=== PATIENT | female | born 1985 | race American Indian/Alaskan Native ===

== ENCOUNTER 2016-07-17 23:07 | Emergency (ER) | payer MEDICAID, OTHER ==
[2016-07-18 00:48] LABS: Basophils % (Auto) 1.3 % (0.0-1.8); Eosinophils % (Auto) 7.1 % (0.0-4.3); Hematocrit 31.3 % (30.3-42.9); Hemoglobin 9.9 gm/dl (10.1-14.3); Mean Corpuscular HGB Conc 32 % (30-34); Mean Corpuscular Volume 71 fl (79-97); Platelet Count 178 K/mm3 (140-440); Red Blood Count 4.41 M/mm3 (3.65-5.03); Red Cell Distribution Width 17.8 % (13.2-15.2); White Blood Count 5.8 K/mm3 (4.5-11.0)
[2016-07-18 00:57] LABS: Mean Corpuscular Hemoglobin 22 pg (28-32)
[2016-07-18 01:02] LABS: Bacteria,Urine 1+ /HPF (Negative); Bilirubin,Urine NEG (Negative); Blood,Urine SM (Negative); Ketones,Urine NEG (Negative); Leukocyte Esterase,Urine LG (Negative); Mucus,Urine FEW /HPF; Nitrite,Urine NEG (Negative); Protein,Urine <15 mg/dL mg/dL (Negative); Urobilinogen,Urine < 2.0 mg/dL (<2.0)
[2016-07-18 01:11] LABS: Alanine Aminotransferase 12 units/L (7-56); Albumin 4.2 g/dL (3.9-5); Albumin/Globulin Ratio 1.6 %; Alkaline Phosphatase 69 units/L (35-129); BUN/Creatinine Ratio 13.75; Bilirubin,Total 0.3 mg/dL (0.1-1.2); Blood Urea Nitrogen 11 mg/dL (7-17); Calcium 9.4 mg/dL (8.4-10.2); Carbon Dioxide 28 mmol/L (22-30); Chloride 102.7 mmol/L (98-107); Glucose 113 mg/dL (65-100); Potassium 3.6 mmol/L (3.6-5.0); Sodium 143 mmol/L (137-145); Total Protein 6.9 g/dL (6.3-8.2)
[2016-07-18 01:13] LABS: Anion Gap 16 mmol/L
[2016-07-18] MEDS ORDERED: ROCEPHIN/NS 1 GM/50 ML 50 ML IV ONE (13:03)
[2016-07-18] MEDS ORDERED: TORADOL IV ONE (13:13)
--- NOTE | 2016-07-18 13:20 | Emergency Department Report ---
HPI - General Chief Complaint: Abdominal Pain Time Seen by Provider: 07/18/16 12:56 - HPI HPI: Room 23 The patient is a 31-year-old female presenting with a chief complaint of abdominal pain. The patient states for the past 2-3 days she has had suprapubic and right lower quadrant abdominal pain that has been sharp and intermittent in nature. Patient denies nausea or vomiting. Patient denies dysuria, hematuria or fever. The patient gives her pain score of 7/10 Location: [see above] Duration: [see above] Quality: [see above] Severity: [see above] Modifying factors: Unknown Context: [see above] Mode of transportation: The patient drove himself to the emergency department and there are no other licensed drivers present ED Past Medical Hx - Past Medical History Hx Hypertension: Yes (04/2013) Hx Seizures: Yes - Surgical History Additional Surgical History: both ankle surgery - Family History Family history: no significant - Social History Smoking Status: Current Every Day Smoker (1/3 pack per day) Substance Use Type: None (denies illicit drug use), Alcohol (occasional) - Medications Home Medications: Home Medications Medication Instructions Recorded Confirmed Last Taken Type Hydralazine HCl [Apresoline TAB] 50 mg PO Q8HR #90 tab 01/25/16 02/11/16 Rx Labetalol HCl 200 mg PO BID #60 tablet 01/25/16 02/11/16 02/10/16 Rx HYDROcodone/APAP 5-325 [[place] 1 each PO Q6HR PRN #14 tablet 02/11/16 Unknown Rx 5/325] Ibuprofen [Motrin] 800 mg PO Q8HR PRN #30 tablet 02/11/16 Unknown Rx Amoxicillin [Trimox CAP] 500 mg PO Q8H #30 capsule 03/28/16 Unknown Rx Cetirizine HCl [ZyrTEC] 10 mg PO DAILY #20 capsule 03/28/16 Unknown Rx HYDROcodone/APAP 5-325 [[place] 1 - 2 each PO Q6HR PRN #14 tablet 07/18/16 Unknown Rx 5/325] Promethazine [Phenergan TAB] 25 mg PO Q6HR PRN #20 tab 07/18/16 Unknown Rx Promethazine [Phenergan] 25 mg [place] Q6HR PRN #5 supp.rect 07/18/16 Unknown Rx Sulfamethoxazole/Trimethoprim 1 each PO BID #20 tablet 07/18/16 Unknown Rx [Bactrim DS TAB] ED Review of Systems ROS: Stated complaint: ABD PAIN/GUERRERO Other details as noted in HPI Comment: All other systems reviewed and negative Constitutional: denies: chills, fever Eyes: denies: eye pain, eye discharge, vision change ENT: denies: ear pain, throat pain Respiratory: denies: cough, shortness of breath, wheezing Cardiovascular: denies: chest pain, palpitations Endocrine: no symptoms reported Gastrointestinal: abdominal pain. denies: nausea, vomiting, diarrhea Genitourinary: denies: urgency, dysuria, discharge Musculoskeletal: denies: back pain, joint swelling, arthralgia Skin: denies: rash, lesions Neurological: denies: headache, weakness, paresthesias Psychiatric: denies: anxiety, depression Hematological/Lymphatic: denies: easy bleeding, easy bruising Physical Exam - Physical Exam Vital Signs: Vital Signs 07/18/16 07/18/16 00:13 05:19 Temperature 98.5 F Pulse Rate 93 H 64 Respiratory 20 20 Rate Blood Pressure 135/78 Blood Pressure 132/74 [Right] O2 Sat by Pulse 100 100 Oximetry Physical Exam: GENERAL: The patient is well-developed well-nourished female lying on stretcher not appearing to be in acute distress. [] HEENT: Normocephalic. Atraumatic. Extraocular motions are intact. Patient has moist mucous membranes. NECK: Supple. Trachea midline CHEST/LUNGS: Clear to auscultation. There is no respiratory distress noted. HEART/CARDIOVASCULAR: Regular. There is no tachycardia. There is no gallop rub or murmur. ABDOMEN: Abdomen is soft, with tenderness to palpation in the right lower quadrant and suprapubic region. Patient has normal bowel sounds. There is no abdominal distention. SKIN: There is no rash. There is no edema. There is no diaphoresis. NEURO: The patient is awake, alert, and oriented. The patient is cooperative. The patient has normal speech MUSCULOSKELETAL: There is no evidence of acute injury. There is no CVA tenderness ED Course Vital Signs 07/18/16 07/18/16 00:13 05:19 Temperature 98.5 F Pulse Rate 93 H 64 Respiratory 20 20 Rate Blood Pressure 135/78 Blood Pressure 132/74 [Right] O2 Sat by Pulse 100 100 Oximetry ED Medical Decision Making - Lab Data Result diagrams: 07/18/16 00:23 07/18/16 00:23 Laboratory Tests 07/18/16 07/18/16 07/18/16 00:23 00:23 00:25 WBC 5.8 RBC 4.41 Hgb 9.9 L Hct 31.3 MCV 71 L MCH 22 L MCHC 32 RDW 17.8 H Plt Count 178 Lymph % (Auto) 31.1 [place] % (Auto) 8.3 H Eos % (Auto) 7.1 H Baso % (Auto) 1.3 Lymph # 1.8 [place] # 0.5 Eos # 0.4 Baso # 0.1 Seg Neutrophils % 52.2 Seg Neutrophils # 3.0 Sodium 143 Potassium 3.6 Chloride 102.7 Carbon Dioxide 28 Anion Gap 16 BUN 11 Creatinine 0.8 Estimated GFR > 60 BUN/Creatinine Ratio 13.75 Glucose 113 H Calcium 9.4 Total Bilirubin 0.3 AST 22 ALT 12 Alkaline Phosphatase 69 Total Protein 6.9 Albumin 4.2 Albumin/Globulin Ratio 1.6 Urine Color Yellow Urine Turbidity Slightly-cloudy Urine pH 6.0 Ur Specific [place] 1.016 Urine Protein <15 mg/dl Urine Glucose (UA) Neg Urine Ketones Neg Urine Blood Sm Urine Nitrite Neg Urine Bilirubin Neg Urine Urobilinogen < 2.0 Ur Leukocyte Esterase Lg Urine WBC (Auto) 129.0 H Urine RBC (Auto) 9.0 U Epithel Cells (Auto) 6.0 Urine Bacteria (Auto) 1+ Ur Transition Epith Cell 2 Urine Mucus Few Urine HCG, Qual Negative - Radiology Data Radiology results: report reviewed (CT abdomen and pelvis), image reviewed (CT abdomen and pelvis) CT abdomen and pelvis (read by radiologist)-thick walled urinary bladder may be due to adequate distention or cystitis. Suspicion of 2 cm cyst left ovary. - Differential Diagnosis UTI, pyelonephritis, appendicitis Critical care attestation.: If time is entered above; I have spent that time in minutes in the direct care of this critically ill patient, excluding procedure time. ED Disposition Clinical Impression: UTI (urinary tract infection), Acute abdominal pain Disposition: DISCHARGED TO HOME OR SELFCARE Is pt being admited?: No Does the pt Need Aspirin: No Condition: Stable Instructions: Abdominal Pain (ED), Urinary Tract Infection in Women (ED) Additional Instructions: Return to the emergency department immediately should you develop worsening symptoms, fever, inability to tolerate food or liquid or any other concerns. Prescriptions: HYDROcodone/APAP 5-325 [[place] 5/325] 1 - 2 each PO Q6HR PRN #14 tablet PRN Reason: Pain Promethazine [Phenergan TAB] 25 mg PO Q6HR PRN #20 tab PRN Reason: Nausea Promethazine [Phenergan] 25 mg [place] Q6HR PRN #5 supp.rect PRN Reason: Vomiting Sulfamethoxazole/Trimethoprim [Bactrim DS TAB] 1 each PO BID #20 tablet Referrals: PRIMARY CARE, [Primary Care Provider] - 3-5 Days Time of Disposition: 15:18
[2016-07-18] MEDS ORDERED: NACL ONE (13:49)
--- NOTE | 2016-07-18 14:58 | Cat Scan Report ---
CT scan of abdomen and pelvis with IV contrast: History: Right lower quadrant abdominal pain. Findings: Normal lung bases. No pleural or pericardial effusion. Normal liver spleen pancreas and gallbladder. Normal adrenals and kidney parenchyma. Thick walled urinary bladder probably due to inadequate distention or cystitis. No free intraperitoneal fluid or. No evidence of adenopathy. Normal aorta. Fluid in the dilated endometrium. Normal appendix. Gaseous colon with moderate stool in colon. No evidence of diverticulitis. Suspicion of a small left ovarian cyst. Impression: Thickwalled urinary bladder may be due to adequate distention or cystitis. Suspicion of 2 cm cyst left ovary.
[2016-07-18 16:09] VITALS: BP 146/82
== END 2016-07-18 15:18 | disposition home or self-care (01) ==
LOC: ED 23:07
DX: N39.0 Urinary tract infection, site not specified (principal); R10.31 Right lower quadrant pain; R56.9 Unspecified convulsions; I10 Essential (primary) hypertension; F17.200 Nicotine dependence, unspecified, uncomplicated
CPT/HCPCS: 36415; 74177; 80053; 81001; 81025; 85025; 87076; 87086; 87186; 96365; 96366; 96375; 99284; J0696; J1885; Q9967

== ENCOUNTER 2016-11-14 23:09 | Emergency (ER) | payer SELFPAY ==
[2016-11-15] MEDS ORDERED: MOTRIN PO ONE (02:23)
--- NOTE | 2016-11-15 02:29 | Emergency Department Report ---
- General Chief Complaint: Extremity Injury, Upper Stated Complaint: BODY ACHES, CHILLS, CONGESTION Time Seen by Provider: 11/15/16 02:22 Source: patient Mode of arrival: Ambulatory Limitations: No Limitations - History of Present Illness Initial Comments: 31 with a past medical history of hypertension. And a history of seizures. 1- year-old -Citizen Of [place] female comes in today for complaint of body aches or Raynaud's nasal congestion coughing and sore throat 2 days. Patient denies any fever or chills no nausea no vomiting. MD Complaint: cough (dry), sore throat, rhinorrhea, nasal congestion -: days(s) (2) Severity scale (0 -10): 8 Quality: aching Consistency: constant Improves With: nothing Worsens With: nothing Associated Symptoms: cough - Related Data Previous Rx's Medication Instructions Recorded Last Taken Type Hydralazine HCl [Apresoline TAB] 50 mg PO Q8HR #90 tab 01/25/16 02/10/16 Rx Labetalol HCl 200 mg PO BID #60 tablet 01/25/16 02/10/16 Rx HYDROcodone/APAP 5-325 [[place] 1 each PO Q6HR PRN #14 tablet 02/11/16 Unknown Rx 5/325] Amoxicillin [Trimox CAP] 500 mg PO Q8H #30 capsule 03/28/16 Unknown Rx Cetirizine HCl [ZyrTEC] 10 mg PO DAILY #20 capsule 03/28/16 Unknown Rx HYDROcodone/APAP 5-325 [[place] 1 - 2 each PO Q6HR PRN #14 tablet 07/18/16 Unknown Rx 5/325] Promethazine [Phenergan TAB] 25 mg PO Q6HR PRN #20 tab 07/18/16 Unknown Rx Promethazine [Phenergan] 25 mg [place] Q6HR PRN #5 supp.rect 07/18/16 Unknown Rx Sulfamethoxazole/Trimethoprim 1 each PO BID #20 tablet 07/18/16 Unknown Rx [Bactrim DS TAB] Ibuprofen [Motrin 800 MG tab] 800 mg PO Q8HR PRN #30 tablet 11/15/16 Unknown Rx Levocetirizine Dihydrochloride 5 mg PO QDAY #30 tablet 11/15/16 Unknown Rx [Xyzal] Triamcinolone Acetonide [Nasacort 2 sprays NS QDAY #1 bottle 11/15/16 Unknown Rx SPRAY] Allergies Allergy/AdvReac Type Severity Reaction Status Date / Time carbamazepine [From Tegretol] Allergy Unknown Unknown Verified 02/10/16 23:05 phenobarbital Allergy Unknown Unknown Verified 02/10/16 23:05 ED Review of Systems ROS: Stated complaint: BODY ACHES, CHILLS, CONGESTION Other details as noted in HPI Constitutional: denies: chills, fever ENT: throat pain Respiratory: cough Cardiovascular: denies: chest pain, palpitations Endocrine: no symptoms reported Gastrointestinal: denies: abdominal pain, nausea, diarrhea Genitourinary: denies: urgency, dysuria, discharge Musculoskeletal: arthralgia. denies: back pain, joint swelling Skin: as per HPI Neurological: denies: headache, weakness, paresthesias Psychiatric: denies: anxiety, depression ED Past Medical Hx - Past Medical History Previous Medical History?: Yes Hx Hypertension: Yes (04/2013) Hx Seizures: Yes - Surgical History Past Surgical History?: Yes Additional Surgical History: both ankle surgery - Social History Smoking Status: Current Every Day Smoker Substance Use Type: Alcohol - Medications Home Medications: Home Medications Medication Instructions Recorded Confirmed Last Taken Type Hydralazine HCl [Apresoline TAB] 50 mg PO Q8HR #90 tab 01/25/16 02/11/16 Rx Labetalol HCl 200 mg PO BID #60 tablet 01/25/16 02/11/16 02/10/16 Rx HYDROcodone/APAP 5-325 [[place] 1 each PO Q6HR PRN #14 tablet 02/11/16 Unknown Rx 5/325] Amoxicillin [Trimox CAP] 500 mg PO Q8H #30 capsule 03/28/16 Unknown Rx Cetirizine HCl [ZyrTEC] 10 mg PO DAILY #20 capsule 03/28/16 Unknown Rx HYDROcodone/APAP 5-325 [[place] 1 - 2 each PO Q6HR PRN #14 tablet 07/18/16 Unknown Rx 5/325] Promethazine [Phenergan TAB] 25 mg PO Q6HR PRN #20 tab 07/18/16 Unknown Rx Promethazine [Phenergan] 25 mg [place] Q6HR PRN #5 supp.rect 07/18/16 Unknown Rx Sulfamethoxazole/Trimethoprim 1 each PO BID #20 tablet 07/18/16 Unknown Rx [Bactrim DS TAB] Ibuprofen [Motrin 800 MG tab] 800 mg PO Q8HR PRN #30 tablet 11/15/16 Unknown Rx Levocetirizine Dihydrochloride 5 mg PO QDAY #30 tablet 11/15/16 Unknown Rx [Xyzal] Triamcinolone Acetonide [Nasacort 2 sprays NS QDAY #1 bottle 11/15/16 Unknown Rx SPRAY] ED Physical Exam - General Limitations: No Limitations General appearance: alert, in no apparent distress - Head Head exam: Present: atraumatic, normocephalic - Eye Eye exam: Present: normal appearance - ENT ENT exam: Present: mucous membranes moist - Expanded ENT Exam Expanded Throat exam: Positive: tonsillomegaly. Negative: tonsillar erythema, tonsillar exudate - Neck Neck exam: Present: normal inspection - Respiratory Respiratory exam: Present: normal lung sounds bilaterally - Cardiovascular Cardiovascular Exam: Present: regular rate, normal rhythm. Absent: systolic murmur, diastolic murmur, rubs, gallop - GI/Abdominal GI/Abdominal exam: Present: soft, normal bowel sounds - Extremities Exam Extremities exam: Present: normal inspection ED Course Vital Signs 11/14/16 11/15/16 23:13 02:34 Temperature 98.3 F Pulse Rate 103 H Respiratory 18 18 Rate Blood Pressure 144/98 O2 Sat by Pulse 100 Oximetry ED Medical Decision Making - Medical Decision Making Patient has been evaluated by this provider fast track. Patient was given Motrin 600 mg by mouth now. We will send out a influenza tests. We would discharge patient on Motrin, Zyrtec,and Nasacort. Critical care attestation.: If time is entered above; I have spent that time in minutes in the direct care of this critically ill patient, excluding procedure time. ED Disposition Clinical Impression: Upper respiratory infection Qualifiers: URI type: unspecified URI Qualified Code(s): J06.9 - Acute upper respiratory infection, unspecified Disposition: DISCHARGED TO HOME OR SELFCARE Is pt being admited?: No Does the pt Need Aspirin: No Condition: Stable Instructions: Viral Syndrome (ED) Additional Instructions: Take medications as prescribed. Follow up with Primary Care provider. Prescriptions: Ibuprofen [Motrin 800 MG tab] 800 mg PO Q8HR PRN #30 tablet PRN Reason: Pain Levocetirizine Dihydrochloride [Xyzal] 5 mg PO QDAY #30 tablet Triamcinolone Acetonide [Nasacort SPRAY] 2 sprays NS QDAY #1 bottle Referrals: PRIMARY CARE, [Primary Care Provider] - 3-5 Days [facility] [Provider Group] - 3-5 Days Forms: Work/School Release Form(ED)
[2016-11-15 04:08] VITALS: BP 101/62
== END 2016-11-15 04:00 | disposition home or self-care (01) ==
LOC: ED 23:09
DX: J06.9 Acute upper respiratory infection, unspecified (principal); I10 Essential (primary) hypertension; R56.9 Unspecified convulsions; F17.200 Nicotine dependence, unspecified, uncomplicated; Z88.8 Allergy status to other drugs, medicaments and biological substances
CPT/HCPCS: 87400; 99282

== ENCOUNTER 2016-12-03 22:34 | Emergency (ER) | payer BC, OTHER ==
[2016-12-03 23:44] LABS: Basophils % (Auto) 0.5 % (0.0-1.8); Eosinophils % (Auto) 5.9 % (0.0-4.3); Hematocrit 32.6 % (30.3-42.9); Mean Corpuscular HGB Conc 31 % (30-34); Red Blood Count 4.69 M/mm3 (3.65-5.03); White Blood Count 3.7 K/mm3 (4.5-11.0)
[2016-12-03 23:47] LABS: Alanine Aminotransferase 8 units/L (7-56); Albumin/Globulin Ratio 1.7 %; Alkaline Phosphatase 58 units/L (35-129); Anion Gap 17 mmol/L; BUN/Creatinine Ratio 11.66; Blood Urea Nitrogen 7 mg/dL (7-17); Calcium 9.6 mg/dL (8.4-10.2); Carbon Dioxide 24 mmol/L (22-30); Chloride 99.2 mmol/L (98-107); Glucose 94 mg/dL (65-100); Lipase 23 units/L (13-60); Potassium 3.7 mmol/L (3.6-5.0); Sodium 136 mmol/L (137-145); Total Protein 6.4 g/dL (6.3-8.2)
[2016-12-03 23:52] LABS: Mean Corpuscular Hemoglobin 21 pg (28-32); Mean Corpuscular Volume 70 fl (79-97); Red Cell Distribution Width 21.2 % (13.2-15.2)
[2016-12-04 01:48] LABS: Bacteria,Urine 1+ /HPF (Negative); Bilirubin,Urine NEG (Negative); Blood,Urine NEG (Negative); Ketones,Urine NEG (Negative); Leukocyte Esterase,Urine LG (Negative); Mucus,Urine 1+ /HPF; Nitrite,Urine NEG (Negative); Protein,Urine <15 mg/dL mg/dL (Negative)
[2016-12-04 02:46] LABS: Platelet Count 124 K/mm3 (140-440)
[2016-12-04] MEDS ORDERED: NACL 0.9% 1000 ML 1,000 ML IV ONE (12:30)
[2016-12-04] MEDS ORDERED: ZOFRAN IV ONE (12:32)
[2016-12-04] MEDS ORDERED: MACROBID PO ONE (12:32)
[2016-12-04] MEDS ORDERED: PEPCID IV ONE (12:32)
[2016-12-04 13:43] VITALS: BP 133/81
--- NOTE | 2016-12-04 13:57 | Emergency Department Report ---
ED Abdominal Pain HPI - General Chief Complaint: Abdominal Pain Stated Complaint: STOMACH PAIN/NAUSEA Time Seen by Provider: 12/04/16 12:14 Source: patient, old records reviewed Mode of arrival: Ambulatory Limitations: No Limitations - History of Present Illness Initial Comments: 31-year-old female with a past medical history hypertension and seizures presents to the hospital complains stomach pain 1 week. Pain is in the epigastrium and lower quadrant described as a intermittent aching pain. Pain is worse with palpation. No alleviating factors. Pain is 8/10 in intensity. Patient had one episode of vomiting with persistent nausea for the last several days. No complaints of dysuria, hematuria, diarrhea, melena, or hematochezia. LMP was on October 02 and patient had abnormal abbreviated menstrual cycle in October. Severity scale (0 -10): 0 - Related Data Previous Rx's Medication Instructions Recorded Last Taken Type Hydralazine HCl [Apresoline TAB] 50 mg PO Q8HR #90 tab 01/25/16 02/10/16 Rx Labetalol HCl 200 mg PO BID #60 tablet 01/25/16 02/10/16 Rx HYDROcodone/APAP 5-325 [[place] 1 each PO Q6HR PRN #14 tablet 02/11/16 Unknown Rx 5/325] Amoxicillin [Trimox CAP] 500 mg PO Q8H #30 capsule 03/28/16 Unknown Rx Cetirizine HCl [ZyrTEC] 10 mg PO DAILY #20 capsule 03/28/16 Unknown Rx HYDROcodone/APAP 5-325 [[place] 1 - 2 each PO Q6HR PRN #14 tablet 07/18/16 Unknown Rx 5/325] Promethazine [Phenergan TAB] 25 mg PO Q6HR PRN #20 tab 07/18/16 Unknown Rx Promethazine [Phenergan] 25 mg [place] Q6HR PRN #5 supp.rect 07/18/16 Unknown Rx Sulfamethoxazole/Trimethoprim 1 each PO BID #20 tablet 07/18/16 Unknown Rx [Bactrim DS TAB] Ibuprofen [Motrin 800 MG tab] 800 mg PO Q8HR PRN #30 tablet 11/15/16 Unknown Rx Levocetirizine Dihydrochloride 5 mg PO QDAY #30 tablet 11/15/16 Unknown Rx [Xyzal] Triamcinolone Acetonide [Nasacort 2 sprays NS QDAY #1 bottle 11/15/16 Unknown Rx SPRAY] Acetaminophen [Acetaminophen ER 650 mg PO Q8HR PRN #30 tablet.er 12/04/16 Unknown Rx TAB] Famotidine [Pepcid] 20 mg PO BID #20 tablet 12/04/16 Unknown Rx Ondansetron [Zofran Odt] 4 mg PO Q8HR PRN #20 tab.rapdis 12/04/16 Unknown Rx Vit W-Ca,Fe,FA(<1 mg) 1 each PO DAILY #30 tablet 12/04/16 Unknown Rx [ Vitamins] Allergies Allergy/AdvReac Type Severity Reaction Status Date / Time carbamazepine [From Tegretol] Allergy Unknown Unknown Verified 02/10/16 23:05 phenobarbital Allergy Unknown Unknown Verified 02/10/16 23:05 ED Review of Systems ROS: Stated complaint: STOMACH PAIN/NAUSEA Other details as noted in HPI Comment: All other systems reviewed and negative Other: Constitutional: No fevers chills Eyes: No eye pain visual changes ENT: No ear pain or throat pain Neck: Denies pain Respiratory: Denies cough wheezing shortness of breath Cardiovascular: Denies chest pain, palpitations, syncope GI: As per HPI : Denies dysuria Musculoskeletal: Denies back pain Skin: Denies rash, lesions, erythema Neurologic: Denies headache, numbness, weakness Psychiatric: Denies suicidal ideation, hallucinations ED Past Medical Hx - Past Medical History Previous Medical History?: Yes Hx Hypertension: Yes (04/2013) Hx Seizures: Yes - Surgical History Past Surgical History?: Yes Additional Surgical History: both ankle surgery - Social History Smoking Status: Current Every Day Smoker Substance Use Type: None - Medications Home Medications: Home Medications Medication Instructions Recorded Confirmed Last Taken Type Hydralazine HCl [Apresoline TAB] 50 mg PO Q8HR #90 tab 01/25/16 02/11/16 Rx Labetalol HCl 200 mg PO BID #60 tablet 01/25/16 02/11/16 02/10/16 Rx HYDROcodone/APAP 5-325 [[place] 1 each PO Q6HR PRN #14 tablet 02/11/16 Unknown Rx 5/325] Amoxicillin [Trimox CAP] 500 mg PO Q8H #30 capsule 03/28/16 Unknown Rx Cetirizine HCl [ZyrTEC] 10 mg PO DAILY #20 capsule 03/28/16 Unknown Rx HYDROcodone/APAP 5-325 [[place] 1 - 2 each PO Q6HR PRN #14 tablet 07/18/16 Unknown Rx 5/325] Promethazine [Phenergan TAB] 25 mg PO Q6HR PRN #20 tab 07/18/16 Unknown Rx Promethazine [Phenergan] 25 mg [place] Q6HR PRN #5 supp.rect 07/18/16 Unknown Rx Sulfamethoxazole/Trimethoprim 1 each PO BID #20 tablet 07/18/16 Unknown Rx [Bactrim DS TAB] Ibuprofen [Motrin 800 MG tab] 800 mg PO Q8HR PRN #30 tablet 11/15/16 Unknown Rx Levocetirizine Dihydrochloride 5 mg PO QDAY #30 tablet 11/15/16 Unknown Rx [Xyzal] Triamcinolone Acetonide [Nasacort 2 sprays NS QDAY #1 bottle 11/15/16 Unknown Rx SPRAY] Acetaminophen [Acetaminophen ER 650 mg PO Q8HR PRN #30 tablet.er 12/04/16 Unknown Rx TAB] Famotidine [Pepcid] 20 mg PO BID #20 tablet 12/04/16 Unknown Rx Ondansetron [Zofran Odt] 4 mg PO Q8HR PRN #20 tab.rapdis 12/04/16 Unknown Rx Vit W-Ca,Fe,FA(<1 mg) 1 each PO DAILY #30 tablet 12/04/16 Unknown Rx [ Vitamins] ED Physical Exam - General Limitations: No Limitations - Other Other exam information: General: No limitations, patient is alert in no acute distress Head exam: Atraumatic, normocephalic Eyes exam: Normal appearance, nonicteric sclerae ENT: Moist mucous membrane, normal oropharynx Neck exam: Normal inspection, full range of motion, no meningismus nontender Respiratory exam: Clear to auscultation bilateral, no wheezes, rales, crackles Cardiovascular: Normal rate and rhythm, normal heart sounds Abdomen: Soft, nondistended, moderate epigastric tenderness. Mild suprapubic tenderness, with normal bowel sounds, no rebound, or guarding Extremity: Full range of motion normal inspection no deformity Back: Normal Inspection, full range of motion, no tenderness Neurologic: Alert, oriented x3, cranial nerves intact, no motor or sensory deficit Psychiatric: normal affect, normal mood Skin: Warm, dry, intact ED Course Vital Signs 12/03/16 12/04/16 22:59 13:42 Temperature 98.6 F 97.8 F Pulse Rate 84 57 L Respiratory 18 18 Rate Blood Pressure 139/92 Blood Pressure 133/81 [Left] O2 Sat by Pulse 100 99 Oximetry - Reevaluation(s) Reevaluation #1: 12/04/16 13:57 Zofran, normal saline, and Macrobid given ED Medical Decision Making - Lab Data Result diagrams: 12/03/16 23:06 12/03/16 23:06 Lab Results 12/03/16 12/03/16 12/04/16 Range/Units 23:06 23:06 00:55 WBC 3.7 L (4.5-11.0) K/mm3 RBC 4.69 (3.65-5.03) M/mm3 Hgb 10.0 L (10.1-14.3) gm/dl Hct 32.6 (30.3-42.9) % MCV 70 L (79-97) fl MCH 21 L (28-32) pg MCHC 31 (30-34) % RDW 21.2 H (13.2-15.2) % Plt Count 124 L (140-440) K/mm3 Lymph % (Auto) 24.8 (13.4-35.0) % [place] % (Auto) 7.2 (0.0-7.3) % Eos % (Auto) 5.9 H (0.0-4.3) % Baso % (Auto) 0.5 (0.0-1.8) % Lymph # 0.9 L (1.2-5.4) K/mm3 [place]ett # 0.3 (0.0-0.8) K/mm3 Eos # 0.2 (0.0-0.4) K/mm3 Baso # 0.0 (0.0-0.1) K/mm3 Seg Neutrophils % 61.6 (40.0-70.0) % Seg Neutrophils # 2.3 (1.8-7.7) K/mm3 Sodium 136 L (137-145) mmol/L Potassium 3.7 (3.6-5.0) mmol/L Chloride 99.2 (98-107) mmol/L Carbon Dioxide 24 (22-30) mmol/L Anion Gap 17 mmol/L BUN 7 (7-17) mg/dL Creatinine 0.6 L (0.7-1.2) mg/dL Estimated GFR > 60 ml/min BUN/Creatinine Ratio 11.66 % Glucose 94 (65-100) mg/dL Calcium 9.6 (8.4-10.2) mg/dL Total Bilirubin 0.20 (0.1-1.2) mg/dL AST 14 (5-40) units/L ALT 8 (7-56) units/L Alkaline Phosphatase 58 (35-129) units/L Total Protein 6.4 (6.3-8.2) g/dL Albumin 4.0 (3.9-5) g/dL Albumin/Globulin Ratio 1.7 % Lipase 23 (13-60) units/L HCG, Quant (0-4) mIU/mL Urine Color Yellow (Yellow) Urine Turbidity Clear (Clear) Urine pH 6.0 (5.0-7.0) Ur Specific [place] 1.016 (1.003-1.030) Urine Protein <15 mg/dl (Negative) mg/dL Urine Glucose (UA) Neg (Negative) mg/dL Urine Ketones Neg (Negative) mg/dL Urine Blood Neg (Negative) Urine Nitrite Neg (Negative) Urine Bilirubin Neg (Negative) Urine Urobilinogen 4.0 (<2.0) mg/dL Ur Leukocyte Esterase Lg (Negative) Urine WBC (Auto) 13.0 H (0.0-6.0) /HPF Urine RBC (Auto) 3.0 (0.0-6.0) /HPF U Epithel Cells (Auto) 3.0 (0-13.0) /HPF Urine Bacteria (Auto) 1+ (Negative) /HPF Calcium Oxalate Crystal 1+ Urine Mucus 1+ /HPF Urine Yeast (Budding) Few /HPF /01/13 Range/Units 12:33 WBC (4.5-11.0) K/mm3 RBC (3.65-5.03) M/mm3 Hgb (10.1-14.3) gm/dl Hct (30.3-42.9) % MCV (79-97) fl MCH (28-32) pg MCHC (30-34) % RDW (13.2-15.2) % Plt Count (140-440) K/mm3 Lymph % (Auto) (13.4-35.0) % [place] % (Auto) (0.0-7.3) % Eos % (Auto) (0.0-4.3) % Baso % (Auto) (0.0-1.8) % Lymph # (1.2-5.4) K/mm3 [place] # (0.0-0.8) K/mm3 Eos # (0.0-0.4) K/mm3 Baso # (0.0-0.1) K/mm3 Seg Neutrophils % (40.0-70.0) % Seg Neutrophils # (1.8-7.7) K/mm3 Sodium (137-145) mmol/L Potassium (3.6-5.0) mmol/L Chloride (98-107) mmol/L Carbon Dioxide (22-30) mmol/L Anion Gap mmol/L BUN (7-17) mg/dL Creatinine (0.7-1.2) mg/dL Estimated GFR ml/min BUN/Creatinine Ratio % Glucose (65-100) mg/dL Calcium (8.4-10.2) mg/dL Total Bilirubin (0.1-1.2) mg/dL AST (5-40) units/L ALT (7-56) units/L Alkaline Phosphatase (35-129) units/L Total Protein (6.3-8.2) g/dL Albumin (3.9-5) g/dL Albumin/Globulin Ratio % Lipase (13-60) units/L HCG, Quant [id number] H (0-4) mIU/mL Urine Color (Yellow) Urine Turbidity (Clear) Urine pH (5.0-7.0) Ur Specific [place] (1.003-1.030) Urine Protein (Negative) mg/dL Urine Glucose (UA) (Negative) mg/dL Urine Ketones (Negative) mg/dL Urine Blood (Negative) Urine Nitrite (Negative) Urine Bilirubin (Negative) Urine Urobilinogen (<2.0) mg/dL Ur Leukocyte Esterase (Negative) Urine WBC (Auto) (0.0-6.0) /HPF Urine RBC (Auto) (0.0-6.0) /HPF U Epithel Cells (Auto) (0-13.0) /HPF Urine Bacteria (Auto) (Negative) /HPF Calcium Oxalate Crystal Urine Mucus /HPF Urine Yeast (Budding) /HPF - Medical Decision Making Patient has no vaginal bleeding but small subchorionic hemorrhage seen on ultrasound. Previous blood type of record is B positive therefore patient does not require RhoGAM. Patient's symptoms improved ED treatment. She began discharged on medications for her and current symptoms as well as UTI. Outpatient. Will be encouraged. - Differential Diagnosis , UTI, ectopic, gastritis, biliary colic, cholecystitis Critical Care Time: No Critical care attestation.: If time is entered above; I have spent that time in minutes in the direct care of this critically ill patient, excluding procedure time. ED Disposition Clinical Impression: UTI (urinary tract infection), , Vomiting, 6 weeks gestation of , Subchorionic hematoma in first trimester, Blood type B+ Disposition: TO HOME OR SELFCARE Is pt being admited?: No Does the pt Need Aspirin: No Condition: Stable Instructions: (ED), Urinary Tract Infection in Women (ED), Acute Nausea and Vomiting (ED) Additional Instructions: Take the medication as prescribed. Take Tylenol as needed for pain. Follow-up with the [facility] doctor provided with a doctor of your choice. Return if symptoms worsen Prescriptions: Acetaminophen [Acetaminophen ER TAB] 650 mg PO Q8HR PRN #30 tablet.er PRN Reason: Pain Famotidine [Pepcid] 20 mg PO BID #20 tablet Ondansetron [Zofran Odt] 4 mg PO Q8HR PRN #20 tab.rapdis PRN Reason: Nausea And Vomiting Vit W-Ca,Fe,FA(<1 mg) [ Vitamins] 1 each PO DAILY #30 tablet Referrals: YESI MATOS MD [Staff Physician] - 3-5 Days Forms: Work/School Release Form(ED) Time of Disposition: 15:45
--- NOTE | 2016-12-04 15:38 | Ultrasound Report ---
ULTRASOUND ABDOMEN COMPLETE: Technique: Transabdominal ultrasound with color Doppler interrogation. History: abdominal pain, vomiting. Findings: The liver is normal size, contour and echotexture. The gallbladder dimensions are within normal limits without intraluminal stone, wall thickening, or pericholecystic fluid. The CBD is normal caliber. The visualized portions of the pancreas including the head and proximal body are within normal limits. The kidneys demonstrate no hydronephrosis or mass. Cortical thickness and echogenicity are within normal limits bilaterally. The spleen and aorta are within normal limits. No aneurysmal dilatation is noted. No ascites. The bladder is unremarkable. IMPRESSION: Unremarkable abdominal ultrasound.
--- NOTE | 2016-12-04 15:40 | Ultrasound Report ---
ULTRASOUND OB LESS THAN 14 WEEKS FETUS ULTRASOUND OB TRANSVAGINAL HISTORY: , lower abdominal pain. FINDINGS: Transabdominal and transvaginal ultrasound was performed. The uterus is anteverted and measures 11 x 5 x 5 cm. No uterine fibroids are identified. An intrauterine gestational sac is identified containing a small pole and yolk sac. heart rate measures 120 beats per minute. Pierron-rump length correlates with a 6 week, 6 day . A small subchorionic hemorrhage is noted along the inferior border of the gestational sac. The cervix is closed. No pelvic fluid. The ovaries are normal size, contour and echotexture. Impression: Viable, single intrauterine dated at 6 weeks, 6 days. Small subchorionic hemorrhage.
--- NOTE | 2016-12-04 16:12 | Ultrasound Report ---
Transabdominal and transvaginal OB ultrasound. History: Pelvic pain. Findings: 2 gestational sacs are identified. However, only one pole is identified with a crown-rump length of 8.8 mm corresponding to a gestational age of 6 weeks and 6 days. The heart rate is 120 beats per minute. In the second gestational sac, a yolk sac is identified, but a pole or cardiac activity are not identified. The right ovary is normal. There is a 2.3 cm in diameter complex area in the left ovary. Impression: An intrauterine with 2 gestational sacs is identified, but only one fetus is identified with measurements consistent with a 6-6/7 weeks viable IUP. The second gestational sac contains a yolk sac only. The empty gestational sac measures 3.2 cm in diameter.
== END 2016-12-04 17:01 | disposition home or self-care (01) ==
LOC: ED 22:34
DX: O23.31 Infections of other parts of urinary tract in pregnancy, first trimester (principal); O20.8 Other hemorrhage in early pregnancy; O21.9 Vomiting of pregnancy, unspecified; Z3A.01 Less than 8 weeks gestation of pregnancy; I10 Essential (primary) hypertension; R56.9 Unspecified convulsions; F17.200 Nicotine dependence, unspecified, uncomplicated; Z88.8 Allergy status to other drugs, medicaments and biological substances
CPT/HCPCS: 36415; 76700; 76801; 76802; 76817; 80053; 81001; 81025; 83690; 84702; 85025; 96361; 96374; 96375; 99284; J2405; J7030

== ENCOUNTER 2017-01-08 23:47 | Emergency (ER) | payer BC ==
[2017-01-08 23:56] VITALS: BP 108/70
--- NOTE | 2017-01-09 03:19 | Emergency Department Report ---
HPI - General Chief Complaint: Upper Respiratory Infection Time Seen by Provider: 01/09/17 02:55 - HPI HPI: Patient is a 31-year-old female presents to ED complaining sore throat, nonproductive cough for until sinus pressure type headache for the past 2 days. Patient denies fevers, nausea, vomiting, abdominal pain, diarrhea, vaginal bleeding, dizziness, blurred vision. Patient states she thinks she might be membranes are sure she states last menstrual period was 10/22/2016. ED Past Medical Hx - Past Medical History Previous Medical History?: Yes Hx Hypertension: Yes (04/2013) Hx Seizures: Yes - Surgical History Past Surgical History?: Yes Additional Surgical History: both ankle surgery - Social History Smoking Status: Current Every Day Smoker Substance Use Type: Alcohol - Medications Home Medications: Home Medications Medication Instructions Recorded Confirmed Last Taken Type Hydralazine HCl [Apresoline TAB] 50 mg PO Q8HR #90 tab 01/25/16 02/11/16 Rx Labetalol HCl 200 mg PO BID #60 tablet 01/25/16 02/11/16 02/10/16 Rx HYDROcodone/APAP 5-325 [[place] 1 each PO Q6HR PRN #14 tablet 02/11/16 Unknown Rx 5/325] Amoxicillin [Trimox CAP] 500 mg PO Q8H #30 capsule 03/28/16 Unknown Rx HYDROcodone/APAP 5-325 [[place] 1 - 2 each PO Q6HR PRN #14 tablet 07/18/16 Unknown Rx 5/325] Promethazine [Phenergan TAB] 25 mg PO Q6HR PRN #20 tab 07/18/16 Unknown Rx Promethazine [Phenergan] 25 mg [place] Q6HR PRN #5 supp.rect 07/18/16 Unknown Rx Sulfamethoxazole/Trimethoprim 1 each PO BID #20 tablet 07/18/16 Unknown Rx [Bactrim DS TAB] Ibuprofen [Motrin 800 MG tab] 800 mg PO Q8HR PRN #30 tablet 11/15/16 Unknown Rx Levocetirizine Dihydrochloride 5 mg PO QDAY #30 tablet 11/15/16 Unknown Rx [Xyzal] Triamcinolone Acetonide [Nasacort 2 sprays NS QDAY #1 bottle 11/15/16 Unknown Rx SPRAY] Famotidine [Pepcid] 20 mg PO BID #20 tablet 12/04/16 Unknown Rx Ondansetron [Zofran Odt] 4 mg PO Q8HR PRN #20 tab.rapdis 12/04/16 Unknown Rx Acetaminophen [Acetaminophen ER 650 mg PO Q8HR PRN #30 tablet.er 01/09/17 Unknown Rx TAB] Cetirizine HCl [ZyrTEC] 10 mg PO DAILY #20 capsule 01/09/17 Unknown Rx Vit W-Ca,Fe,FA(<1 mg) 1 each PO DAILY #30 tablet 01/09/17 Unknown Rx [ Vitamins] ED Review of Systems ROS: Stated complaint: SORE THROAT/HEADACHE Other details as noted in HPI Constitutional: denies: chills, fever Eyes: denies: eye pain, eye discharge, vision change ENT: throat pain, congestion. denies: ear pain, hearing loss, epistaxis Respiratory: cough. denies: shortness of breath, wheezing Cardiovascular: denies: chest pain, palpitations Endocrine: no symptoms reported Gastrointestinal: denies: abdominal pain, nausea, vomiting, diarrhea Genitourinary: denies: urgency, dysuria, discharge Musculoskeletal: denies: back pain, joint swelling, arthralgia Skin: denies: rash, lesions Neurological: denies: headache, weakness, paresthesias Psychiatric: denies: anxiety, depression Hematological/Lymphatic: denies: easy bleeding, easy bruising Physical Exam - Physical Exam Vital Signs: Vital Signs 01/08/17 23:51 Temperature 97.8 F Pulse Rate 94 H Respiratory 20 Rate Blood Pressure 108/70 O2 Sat by Pulse 100 Oximetry Physical Exam: GENERAL: Alert and oriented x3, no apparent distress, Normal Gait, atraumatic. HEAD: Head is normocephalic and a-traumatic. EYES: Extra ocular muscles are intact. Pupils are equal, round, and reactive to light and accommodation. EARS: symetrical, atraumatic, non tender, ear canal clear and moderate cerumen, tympanic membrance non inflamed. gross auditory nml bilaterally. NOSE: Nose symetrical, Nontender,Nares appeared normal. Frontal sinus tender to palpation MOUTH:Mouth is well hydrated and without lesions. Tonsils nonerythematous or swollen, Uvula midline, Tongue not elevated. Mucous membranes are moist. Posterior pharynx clear, no exudate or lesions. Patent airways. NECK: Supple. Non edematous, No carotid bruits. No lymphadenopathy or thyromegaly. No C-spine tenderness LUNGS: Symetrical with respiration, No wheezing, no rales or crackles, CTAB. HEART: S1, S2 present, regular rate and rhythm without murmur, no rubs, no gallops. Non tender to palpation ABDOMEN: No organomegaly was noted,Positive bowel sounds, soft, and non- distended. . Nontender to palpation on all Quadrants, NO CVA tenderness. SKIN: Warm and dry, No lesions, No ulceration or induration present. ED Course Vital Signs 01/08/17 23:51 Temperature 97.8 F Pulse Rate 94 H Respiratory 20 Rate Blood Pressure 108/70 O2 Sat by Pulse 100 Oximetry ED Medical Decision Making - Medical Decision Making 31-year-old female presents with the an incident of present finding ED course: Patient received Tylenol while in the ED. Beta Quant, rapid strep disorder. Rapid strep test negative. Quant Positive Discussed the patient that she is . Due to last menstrual period patient is approximately 11-12 weeks . Discussed patient to follow-up. [employer] as referred. Patient given vitamins, Zyrtec and Tylenol as home medications. Discussed the patient to hydrate hydrate hydrates and eat appropriately. Vital signs are normal patient is in no acute distress Patient is alert and oriented 3 shortness on his instructions given. Discussed the patient's symptoms worsen to return to ED though is follow-up with OB 3-5 days Critical care attestation.: If time is entered above; I have spent that time in minutes in the direct care of this critically ill patient, excluding procedure time. ED Disposition Clinical Impression: state, incidental URI (upper respiratory infection) Qualifiers: URI type: unspecified viral URI Qualified Code(s): J06.9 - Acute upper respiratory infection, unspecified; B97.89 - Other viral agents as the cause of diseases classified elsewhere Disposition: DC-01 TO HOME OR SELFCARE Is pt being admited?: No Does the pt Need Aspirin: No Condition: Stable Instructions: Upper Respiratory Infection (ED), Morning Sickness (ED), (ED) Additional Instructions: Particular medication as prescribed. Follow-up with [facility] [facility] as soon as possible If any worsening or new symptoms return to ED. Increase water and fluid intake. Prescriptions: Acetaminophen [Acetaminophen ER TAB] 650 mg PO Q8HR PRN #30 tablet.er PRN Reason: Pain Cetirizine HCl [ZyrTEC] 10 mg PO DAILY #20 capsule Vit W-Ca,Fe,FA(<1 mg) [ Vitamins] 1 each PO DAILY #30 tablet Referrals: PRIMARY CARE, [Primary Care Provider] - 3-5 Days GILSON LUO MD [Referring] - 3-5 Days SALINA GARCIA MD [Staff Physician] - 3-5 Days IOANA GARCIA MD [Referring] - 3-5 Days DUARTE GARCIA MD [Referring] - 3-5 Days Forms: Work/School Release Form(ED) Time of Disposition: 04:40
[2017-01-09] MEDS ORDERED: TYLENOL PO ONE (03:30)
== END 2017-01-09 04:57 | disposition home or self-care (01) ==
LOC: ED 23:47
DX: J06.9 Acute upper respiratory infection, unspecified (principal); I10 Essential (primary) hypertension; F17.210 Nicotine dependence, cigarettes, uncomplicated; Z33.1 Pregnant state, incidental
CPT/HCPCS: 36415; 84702; 87116; 87430; 99283

== ENCOUNTER 2017-01-30 23:03 | Emergency (ER) | payer BC ==
[2017-01-31 03:49] VITALS: BP 102/58
--- NOTE | 2017-01-31 04:07 | Emergency Department Report ---
HPI - General Chief Complaint: Upper Respiratory Infection Time Seen by Provider: 01/31/17 02:37 - HPI HPI: This is a 32-year-old female who presents to ED complaining of nasal congestion intermittently for the past month that has gotten progressively worse the past week. Patient states she's had intermittent sinus congestion for the past month due to her work environment. She reports runny nose, sinus pressure. Patient states she is about 4 months [facility] She reports no problems with the and reports routine visits to the OB. She denies fevers/chills/nausea/vomiting/abdominal pain/chest pain/ ED Past Medical Hx - Past Medical History Previous Medical History?: Yes Hx Hypertension: Yes (04/2013) Hx Seizures: Yes - Surgical History Past Surgical History?: Yes Additional Surgical History: both ankle surgery - Social History Smoking Status: Current Every Day Smoker Substance Use Type: Alcohol - Medications Home Medications: Home Medications Medication Instructions Recorded Confirmed Last Taken Type Hydralazine HCl [Apresoline TAB] 50 mg PO Q8HR #90 tab 01/25/16 02/11/16 Rx Labetalol HCl 200 mg PO BID #60 tablet 01/25/16 02/11/16 02/10/16 Rx HYDROcodone/APAP 5-325 [[place] 1 each PO Q6HR PRN #14 tablet 02/11/16 Unknown Rx 5/325] Amoxicillin [Trimox CAP] 500 mg PO Q8H #30 capsule 03/28/16 Unknown Rx HYDROcodone/APAP 5-325 [[place] 1 - 2 each PO Q6HR PRN #14 tablet 07/18/16 Unknown Rx 5/325] Promethazine [Phenergan TAB] 25 mg PO Q6HR PRN #20 tab 07/18/16 Unknown Rx Promethazine [Phenergan] 25 mg DE Q6HR PRN #5 supp.rect 07/18/16 Unknown Rx Sulfamethoxazole/Trimethoprim 1 each PO BID #20 tablet 07/18/16 Unknown Rx [Bactrim DS TAB] Ibuprofen [Motrin 800 MG tab] 800 mg PO Q8HR PRN #30 tablet 11/15/16 Unknown Rx Levocetirizine Dihydrochloride 5 mg PO QDAY #30 tablet 11/15/16 Unknown Rx [Xyzal] Triamcinolone Acetonide [Nasacort 2 sprays NS QDAY #1 bottle 11/15/16 Unknown Rx SPRAY] Famotidine [Pepcid] 20 mg PO BID #20 tablet 12/04/16 Unknown Rx Ondansetron [Zofran Odt] 4 mg PO Q8HR PRN #20 tab.rapdis 12/04/16 Unknown Rx Acetaminophen [Acetaminophen ER 650 mg PO Q8HR PRN #30 tablet.er 01/09/17 Unknown Rx TAB] Vit W-Ca,Fe,FA(<1 mg) 1 each PO DAILY #30 tablet 01/09/17 Unknown Rx [ Vitamins] Acetaminophen [Acetaminophen 8 650 mg PO TID #30 tablet.er 01/31/17 Unknown Rx Hour] Cetirizine HCl [ZyrTEC] 10 mg PO DAILY #30 capsule 01/31/17 Unknown Rx Pseudoephedrine HCl [Nasal & Sinus 30 mg PO TID #30 tablet 01/31/17 Unknown Rx Decongestant] ED Review of Systems ROS: Stated complaint: HEADACHE, NASAL CONGESTION Other details as noted in HPI Constitutional: denies: chills, fever Eyes: denies: eye pain, eye discharge, vision change ENT: congestion. denies: ear pain, throat pain, dental pain, epistaxis Respiratory: denies: cough, shortness of breath, wheezing Cardiovascular: denies: chest pain, palpitations Endocrine: no symptoms reported Gastrointestinal: denies: abdominal pain, nausea, vomiting, diarrhea, constipation Genitourinary: denies: urgency, dysuria, frequency, hematuria, discharge Musculoskeletal: denies: back pain, joint swelling, arthralgia Skin: denies: rash, lesions Neurological: denies: headache, weakness, paresthesias Psychiatric: denies: anxiety, depression Hematological/Lymphatic: denies: easy bleeding, easy bruising Physical Exam - Physical Exam Vital Signs: Vital Signs 01/31/17 00:36 Temperature 98.3 F Pulse Rate 94 H Respiratory 16 Rate Blood Pressure 116/70 [Right] O2 Sat by Pulse 99 Oximetry Physical Exam: GENERAL: Alert and oriented x3, no apparent distress, Normal Gait, atraumatic. HEAD: Head is normocephalic and a-traumatic. EYES: Extra ocular muscles are intact. Sclerae white, no conjunctivitis bilaterally EARS: symetrical, atraumatic, non tender, ear canal clear and moderate cerumen, tympanic membrance non inflamed. Serous fluid behind tympanic membranes bilaterally .gross auditory nml bilaterally. NOSE: Nose symetrical, Nontender,Nares appeared normal. Frontal and maxillary sinus tenderness MOUTH:Mouth is well hydrated and without lesions. Tonsils nonerythematous or swollen, Uvula midline, Tongue not elevated. Mucous membranes are moist. Posterior pharynx clear, no exudate or lesions. Patent airways. LUNGS: Symetrical with respiration, No wheezing, no rales or crackles, CTAB. HEART: S1, S2 present, regular rate and rhythm without murmur, no rubs, no gallops. Non tender to palpation ABDOMEN: No organomegaly was noted,Positive bowel sounds, soft, and non- distended. . Nontender to palpation on all Quadrants, NO CVA tenderness. PSYCHIATRIC: Mood is congruent with affect, denies suicidal or homicidal ideations. SKIN: Warm and dry, No lesions, No ulceration or induration present. ED Course Vital Signs 01/31/17 00:36 Temperature 98.3 F Pulse Rate 94 H Respiratory 16 Rate Blood Pressure 116/70 [Right] O2 Sat by Pulse 99 Oximetry ED Medical Decision Making - Medical Decision Making 32-year-old female presents with a sinus congestion ED course: Discussed patient will be sent home on trial of Zyrtec Discussed to follow up with primary care physician. Discussed with the medication as prescribed. Vitals Signs are normal patient is in no acute distress Critical care attestation.: If time is entered above; I have spent that time in minutes in the direct care of this critically ill patient, excluding procedure time. ED Disposition Clinical Impression: Nasal sinus congestion Disposition: DC-01 TO HOME OR SELFCARE Is pt being admited?: No Does the pt Need Aspirin: No Condition: Stable Instructions: Sinusitis (ED), Allergic Rhinitis (ED), Pseudoephedrine (By mouth ) Prescriptions: Acetaminophen [Acetaminophen 8 Hour] 650 mg PO TID #30 tablet.er Cetirizine HCl [ZyrTEC] 10 mg PO DAILY #30 capsule Pseudoephedrine HCl [Nasal & Sinus Decongestant] 30 mg PO TID #30 tablet Referrals: PRIMARY CARE, [Primary Care Provider] - 3-5 Days [facility] [Outside] - 3-5 Days [facility] [Outside] - 3-5 Days Forms: Work/School Release Form(ED) Time of Disposition: 04:20
== END 2017-01-31 04:35 | disposition home or self-care (01) ==
LOC: ED 23:03
DX: R09.81 Nasal congestion (principal)
CPT/HCPCS: 99282

== ENCOUNTER 2017-12-10 19:42 | Emergency (ER) | payer MEDICAID ==
[2017-12-10] MEDS ORDERED: ASPIRIN PO ONE (20:34)
[2017-12-10] MEDS ORDERED: CATAPRES PO ONE (20:39)
[2017-12-10 21:13] LABS: Basophils # (Auto) 0.1 K/mm3 (0.0-0.1); Basophils % (Auto) 0.9 % (0.0-1.8); Eosinophils # (Auto) 0.5 K/mm3 (0.0-0.4); Eosinophils % (Auto) 7.4 % (0.0-4.3); Hematocrit 31.2 % (30.3-42.9); Hemoglobin 9.6 gm/dl (10.1-14.3); Lymphocytes # (Auto) 1.9 K/mm3 (1.2-5.4); Lymphocytes % (Auto) 28.9 % (13.4-35.0); Mean Corpuscular HGB Conc 31 % (30-34); Monocytes # (Auto) 0.4 K/mm3 (0.0-0.8); Monocytes % (Auto) 6.2 % (0.0-7.3); Platelet Count 186 K/mm3 (140-440); Red Blood Count 4.52 M/mm3 (3.65-5.03); Red Cell Distribution Width 19.1 % (13.2-15.2)
[2017-12-10 21:15] LABS: Mean Corpuscular Hemoglobin 21 pg (28-32); Mean Corpuscular Volume 69 fl (79-97)
[2017-12-10 21:26] LABS: BUN/Creatinine Ratio 16; Blood Urea Nitrogen 18 mg/dL (7-17); Calcium 9.4 mg/dL (8.4-10.2); Hemolysis Index 0
[2017-12-11] MEDS ORDERED: TORADOL IM ONE (00:38)
[2017-12-11] MEDS ORDERED: CATAPRES PO ONE (00:38)
--- NOTE | 2017-12-11 00:57 | XRay Report ---
FINAL REPORT EXAM: XR CHEST 1V AP HISTORY: chest pain COMPARISON: None available. FINDINGS: Frontal view(s) of the chest obtained. Cardiac silhouette within normal limits. No gross consolidation or effusion. No pneumothorax. IMPRESSION: No grossly acute findings.
--- NOTE | 2017-12-11 01:29 | Emergency Department Report ---
HPI - General Chief Complaint: Chest Pain Time Seen by Provider: 12/11/17 00:02 - HPI HPI: The patient is a 32-year-old female presents for evaluation of chest pain. The patient reports midsternal chest pain, stabbing in quality, moderate severity, constant for the past 3 days. She also complains of left ear pain for the past month, and on and off headaches for the past 3 months. She has no headache currently. The patient denies fever, neck pain, parasthesias, dyspnea, cough, hemoptysis, palpitations, dizziness, syncope, unilateral leg swelling, calf muscle pain. Patient also denies cocaine or other stimulant use, history of DVT or PE, recent immobilization, or history of cancer. ED Past Medical Hx - Past Medical History Hx Hypertension: Yes (04/2013) Hx Congestive Heart Failure: No Hx Diabetes: No Hx Sickle Cell Disease: No Hx Seizures: Yes (last sz at 14 y/o) Hx Asthma: No Hx COPD: No Hx HIV: No - Surgical History Additional Surgical History: both ankle surgery - Social History Smoking Status: Current Every Day Smoker Substance Use Type: None - Medications Home Medications: Home Medications Medication Instructions Recorded Confirmed Last Taken Type Hydralazine HCl [Apresoline TAB] 50 mg PO Q8HR #90 tab 01/25/16 07/18/17 Rx Labetalol HCl 200 mg PO BID #60 tablet 01/25/16 07/18/17 1 Day Ago Rx ~07/17/17 HYDROcodone/APAP 5-325 [[place] 1 each PO Q6HR PRN #14 tablet 02/11/16 07/18/17 Unknown Rx 5/325] Amoxicillin [Trimox CAP] 500 mg PO Q8H #30 capsule 03/28/16 07/18/17 Unknown Rx HYDROcodone/APAP 5-325 [[place] 1 - 2 each PO Q6HR PRN #14 tablet 07/18/16 Unknown Rx 5/325] Promethazine [Phenergan TAB] 25 mg PO Q6HR PRN #20 tab 07/18/16 07/18/17 Unknown Rx Promethazine [Phenergan] 25 mg [place] Q6HR PRN #5 supp.rect 07/18/16 07/18/17 Unknown Rx Sulfamethoxazole/Trimethoprim 1 each PO BID #20 tablet 07/18/16 07/18/17 Unknown Rx [Bactrim DS TAB] Levocetirizine Dihydrochloride 5 mg PO QDAY #30 tablet 11/15/16 07/18/17 Unknown Rx [Xyzal] Triamcinolone Acetonide [Nasacort 2 sprays NS QDAY #1 bottle 11/15/16 07/18/17 Unknown Rx SPRAY] Famotidine [Pepcid] 20 mg PO BID #20 tablet 12/04/16 07/18/17 Unknown Rx Ondansetron [Zofran Odt] 4 mg PO Q8HR PRN #20 tab.rapdis 12/04/16 07/18/17 Unknown Rx Acetaminophen [Acetaminophen ER 650 mg PO Q8HR PRN #30 tablet.er 01/09/17 Unknown Rx TAB] Vit Calc,Iron,Folic 1 each PO DAILY #30 tablet 01/09/17 07/18/17 1 Day Ago Rx [ Vitamins] ~07/17/17 Acetaminophen [Acetaminophen 8 650 mg PO TID #30 tablet.er 01/31/17 07/18/17 Unknown Rx Hour] Cetirizine HCl [ZyrTEC] 10 mg PO DAILY #30 capsule 01/31/17 07/18/17 Unknown Rx Pseudoephedrine HCl [Nasal & Sinus 30 mg PO TID #30 tablet 01/31/17 07/18/17 Unknown Rx Decongestant] Hydralazine HCl 25 mg PO BID 07/18/17 07/18/17 1 Day Ago History ~07/17/17 Ferrous Sulfate [Feosol 325 MG tab] 325 mg PO BID #120 tablet 07/20/17 Unknown Rx Ibuprofen [Motrin 800 MG tab] 800 mg PO Q8HR PRN #30 tablet 07/20/17 Unknown Rx Labetalol [Normodyne TAB] 200 mg PO BID #60 tablet 07/20/17 Unknown Rx Ibuprofen [Motrin] 800 mg PO Q8HR PRN #15 tablet 12/11/17 Unknown Rx traMADol [Ultram 50 MG tab] 50 mg PO Q6HR PRN #15 tablet 12/11/17 Unknown Rx ED Review of Systems ROS: Stated complaint: MIGRAINE, LEFT EAR PAIN, CHEST PAIN Other details as noted in HPI Constitutional: denies: fever ENT: denies: throat or neck pain Respiratory: denies: cough, shortness of breath Cardiovascular: reports chest pain Endocrine: denies unexplained weight loss or gain Gastrointestinal: denies: abdominal pain, nausea Genitourinary: denies: dysuria Musculoskeletal: denies: leg swelling Skin: denies: rash Neurological: denies: headache Hematological/Lymphatic: denies: easy bleeding or easy bruising Psych: denies sadness or hopelessness Physical Exam - Physical Exam Vital Signs: Vital Signs 12/10/17 12/10/17 12/10/17 19:55 20:28 20:40 Temperature 98.3 F 98.3 F Pulse Rate 83 78 78 Respiratory 14 16 Rate Blood Pressure 184/102 184/102 183/102 Blood Pressure [Right] O2 Sat by Pulse 99 99 Oximetry 12/10/17 12/10/17 12/10/17 23:37 23:50 23:51 Temperature 97.5 F L Pulse Rate 80 71 Respiratory 16 15 Rate Blood Pressure Blood Pressure 162/92 [Right] O2 Sat by Pulse 99 100 100 Oximetry Physical Exam: General: well-nourished, well-developed, no acute distress Head: Normocephalic, atraumatic Eyes: normal sclera ENT: Mucous membranes are pink and moist Neck: trachea midline, neck supple, No neck stiffness, no cervical adenopathy Respiratory: Breath sounds equal bilaterally, no wheezing, rales, or rhonchi Cardio: S1 and S2 present, no murmurs, rubs, gallops, capillary refill is brisk Abdomen: Normoactive bowel sounds, soft abdomen, no rigidity, no guarding or rebound tenderness Chest WALL/Back: No tenderness to palpation of the chest wall, no CVA tenderness with percussion Musc: No pitting edema Skin: No rash Neuro: alert oriented x4, normal cognition, speech normal, PERRL, EOM intact, no facial drooping, no uvula or tongue deviation on protrusion, no deficit with rotation of neck or shoulder shrug, no obvious gross motor deficit in the upper or lower extremities with flexion or extension at the shoulder, elbow, wrist, hip, knee, or ankle bilaterally, no obvious gross sensation deficit to crude touch or 2 pt discrimination, 2+ symmetric reflexes on DTR testing, no coordination deficit with [id number] or [id number] testing, Babinski downgoing, romberg negative, patient able to to ambulate without abnormal gait Psych: Normal affect ED Course Vital Signs 12/10/17 12/10/17 12/10/17 19:55 20:28 20:40 Temperature 98.3 F 98.3 F Pulse Rate 83 78 78 Respiratory 14 16 Rate Blood Pressure 184/102 184/102 183/102 Blood Pressure [Right] O2 Sat by Pulse 99 99 Oximetry 12/10/17 12/10/17 12/10/17 23:37 23:50 23:51 Temperature 97.5 F L Pulse Rate 80 71 Respiratory 16 15 Rate Blood Pressure Blood Pressure 162/92 [Right] O2 Sat by Pulse 99 100 100 Oximetry ED Medical Decision Making - Lab Data Result diagrams: 12/10/17 20:50 12/10/17 20:50 - Medical Decision Making The patient was seen and examined by myself. The patient is placed on a cardiac technologist and continuous pulse ox. On initial evaluation, the patient was found to be in no distress. Exam of the left ear was unremarkable. EKG was negative for findings suggestive of acute cardiac infarct. Labs and imaging are obtained. On initial evaluation, the patient was found to be in no distress. As there are no neuro deficits or other findings on examination concerning for acute intracranial disease process, and as the patient states that symptoms are consistent with previous headaches, a CAT scan of the head will not be obtained at this time. The patient is given an IM dose of Toradol for pain. Chest x-ray is negative for pneumothorax, focal consolidation, pulmonary vascular congestion , pleural effusion, or other obvious acute cardiopulmonary disease process. Lab results were non-concerning including levels of troponin, WBC, hemoglobin, hematocrit, electrolytes, renal function. The patient was reevaluated and reported that their symptoms were markedly improved. As the patient has a KAYE risk score less than 2, and a well's score less than 2, the patient is at low risk of ACS or pulmonary emboli etiology of their symptoms. The patient is stable for discharge with outpatient follow-up. The patient is given follow-up and return instructions. The patient expressed understanding and agreed with the plan. The patient is discharged in stable condition. Critical care attestation.: If time is entered above; I have spent that time in minutes in the direct care of this critically ill patient, excluding procedure time. ED Disposition Clinical Impression: Acute chest pain, Hypertensive urgency Acute nonintractable headache Qualifiers: Headache type: unspecified Qualified Code(s): R51 - Headache Disposition: DC-01 TO HOME OR SELFCARE Is pt being admited?: No Does the pt Need Aspirin: No Condition: Stable Instructions: Chest Pain (ED), Hypertension (ED), Migraine Headache (ED) Referrals: [facility] [Outside] - 3-5 Days Time of Disposition: 01:36
[2017-12-11 02:02] VITALS: BP 155/91
== END 2017-12-11 02:24 | disposition home or self-care (01) ==
LOC: ED 19:42
DX: I16.0 Hypertensive urgency (principal); R07.89 Other chest pain; R51 Headache; H92.02 Otalgia, left ear; F17.200 Nicotine dependence, unspecified, uncomplicated
CPT/HCPCS: 36415; 71045; 80048; 84484; 84703; 85025; 93005; 93010; 96372; 99284; J1885

== ENCOUNTER 2019-07-09 17:09 | Emergency (ER) | payer SELFPAY ==
[2019-07-09 21:11] VITALS: BP 185/93
--- NOTE | 2019-07-09 21:24 | Event Note ---
ED Screening Note Date of service: 07/09/19 Time: 21:19 ED Screening Note: 34 y/o female comes in for cough for 2 weeks , SOB , body aches and busted lip that happen last night. No fevers no chills. PMH HTN, SZ disorder, anemia. Taking nothing for symptoms. Reports that she is homeless. This initial assessment/diagnostic orders/clinical plan/treatment(s) is/are subject to change based on patients health status, clinical progression and re- assessment by fellow clinical providers in the ED. Further treatment and workup at subsequent clinical providers discretion. Patient/guardian urged not to elope from the ED as their condition may be serious if not clinically assessed and managed. Initial orders include:
--- NOTE | 2019-07-09 21:28 | Emergency Department Report ---
Chief Complaint: Upper Respiratory Infection Stated Complaint: SOB/CHEST PAIN/HEADACHES Time Seen by Provider: 07/09/19 21:19 - HPI History of Present Illness: 34 y/o female comes in for cough for 2 weeks , SOB , body aches and busted lip that happen last night. No fevers no chills. PMH HTN, SZ disorder, anemia. Taking nothing for symptoms. Reports that she is homeless. Has been called 3 times and was sleep in lobby - Exam Vital Signs: Vital Signs 07/09/19 21:09 Temperature 98.3 F Pulse Rate 62 Respiratory 18 Rate Blood Pressure 185/93 O2 Sat by Pulse 100 Oximetry Physical Exam: AxO times 3. NAD non toxic HEENT: Lip swelling no open wound non discharge not bloody. Chest CTA Heart RRR no murmurs Abdominal exam soft non tender. Ext FROM ambulating without difficulties. MSE screening note: Focused history and physical exam performed. Due to findings the following was ordered: 34 y/o female comes in for cough for 2 weeks , SOB , body aches and busted lip that happen last night. No fevers no chills. PMH HTN, SZ disorder, anemia. Taking nothing for symptoms. Reports that she is homeless. Has been called 3 times and was sleep in lobby. Recommend OTC cold medications. Ibuprofen for body aches. ED Disposition for MSE Clinical Impression: Viral syndrome Disposition: MED SCREENING EXAM-LEFT Is pt being admited?: No Does the pt Need Aspirin: No Condition: Stable Instructions: Viral Syndrome (ED) Additional Instructions: Recommend OTC cold medications. Ibuprofen for body aches. Referrals: PRIMARY CARE, [Primary Care Provider] - 3-5 Days
== END 2019-07-09 21:50 | disposition left against medical advice (07) ==
LOC: ED 17:09
DX: B34.9 Viral infection, unspecified (principal); Z88.1 Allergy status to other antibiotic agents; Z88.8 Allergy status to other drugs, medicaments and biological substances

== ENCOUNTER 2019-07-10 11:11 | Emergency (ER) | payer SELFPAY ==
--- NOTE | 2019-07-10 11:57 | Emergency Department Report ---
- HPI History of Present Illness: 34 y/o female comes in for viral symptoms times 2 weeks. No fevers. Headaches has not taking anything for her symptoms. She smokes everyday. Reports that she is homeless. Patient was here yesterday for the same complaint. Patient states the last times she felt like this she needed a blood transfusion - Exam Physical Exam: AxO times 3 NAD Ambulating well. MSE screening note: Focused history and physical exam performed. Due to findings the following was ordered: H/H stable for patient. Patient is recommended to take OTC Iron. <DENISE STALLINGS - Last Filed: 07/10/19 15:07> - Exam Vital Signs: Vital Signs 07/10/19 11:37 Temperature 97.2 F L Pulse Rate 80 Respiratory 16 Rate Blood Pressure 168/108 O2 Sat by Pulse 99 Oximetry MSE screening note: Focused history and physical exam performed. Due to findings the following was ordered: <CAMRYN PRASAD P - Last Filed: 07/10/19 15:15> Chief Complaint: Upper Respiratory Infection Stated Complaint: HEADACHE/SOB/BODYACHE Time Seen by Provider: 07/10/19 11:37 ED Medical Decision Making - Lab Data Result diagrams: 07/10/19 13:47 <DENISE STALLINGS - Last Filed: 07/10/19 15:07> - Lab Data Result diagrams: 07/10/19 13:47 - Medical Decision Making Attestation: Available for consultation <CAMRYN PRASAD P - Last Filed: 07/10/19 15:15> ED Disposition for MSE Is pt being admited?: No Does the pt Need Aspirin: No <DENISE STALLINGS - Last Filed: 07/10/19 15:07> Is pt being admited?: No <CAMRYN PRASAD P - Last Filed: 07/10/19 15:15> Clinical Impression: Chronic iron deficiency anemia Disposition: - TO HOME OR SELFCARE Condition: Stable Additional Instructions: recommended to take OTC Iron. You do not require a blood transfusion. 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
[2019-07-10 14:18] LABS: Basophils # (Auto) 0.1 K/mm3 (0.0-0.1); Basophils % (Auto) 1.1 % (0.0-1.8); Eosinophils # (Auto) 0.3 K/mm3 (0.0-0.4); Eosinophils % (Auto) 7.1 % (0.0-4.3); Hematocrit 27.3 % (30.3-42.9); Hemoglobin 8.2 gm/dl (10.1-14.3); Lymphocytes # (Auto) 1.2 K/mm3 (1.2-5.4); Lymphocytes % (Auto) 23.9 % (13.4-35.0); Mean Corpuscular HGB Conc 30 % (30-34); Monocytes # (Auto) 0.4 K/mm3 (0.0-0.8); Monocytes % (Auto) 8.4 % (0.0-7.3); Platelet Count 200 K/mm3 (140-440); Red Blood Count 4.35 M/mm3 (3.65-5.03)
[2019-07-10 14:25] LABS: Mean Corpuscular Volume 63 fl (79-97); Red Cell Distribution Width 21.1 % (13.2-15.2)
[2019-07-10 15:16] VITALS: BP 160/100
== END 2019-07-10 15:16 | disposition home or self-care (01) ==
LOC: ED 11:11
DX: D50.8 Other iron deficiency anemias (principal); Z86.2 Personal history of diseases of the blood and blood-forming organs and certain disorders involving the immune mechanism; Z88.8 Allergy status to other drugs, medicaments and biological substances
CPT/HCPCS: 36415; 85025; 99283

== ENCOUNTER 2019-07-11 08:29 | Emergency (ER) | payer SELFPAY ==
[2019-07-11 08:38] VITALS: BP 155/121
[2019-07-11] MEDS ORDERED: IBUPROFEN 800 MG TAB PO ONE (11:17)
[2019-07-11] MEDS ORDERED: IPRATROPIUM/ALBUTEROL SULFATE 3 ML AMPUL.NEB IH ONE (11:17)
[2019-07-11] MEDS ORDERED: dexAMETHasone 20 MG/5 ML VIAL IM ONE (11:17)
[2019-07-11] MEDS ORDERED: BENZONATATE 100 MG CAP PO ONE (11:17)
--- NOTE | 2019-07-11 11:30 | Emergency Department Report ---
Upper Respiratory HPI - HPI Chief Complaint: Weakness Stated Complaint: CHEST PAIN/MIGRANE/KRISHAN/COUGH Time Seen by Provider: 07/11/19 10:51 Duration: 4 Days URI Symptoms: Rhinorrhea: Yes, Sore Throat: No, Ear Pain: No, Cough: Yes, Shortness of Breath: No, Sick Contacts: No, Unable to Take Fluids: No, Urine Output Abnormal: No, Listless Behavior: No Other History: This is a 34-year-old female nontoxic, well nourished in appearance, no acute signs of distress presents to the ED with c/o of productive cough, wheezing, rhinorrhea, nasal congestion x4 days. Patient describes productive cough as yellow mucus production. Patient denies any sick contact. Patient denies any recent travels, long car, recent hospital stays. Patient denies any calf pain or calf tenderness. Patient denies any chest pain, short of breath, fever, chills, nausea, vomiting, hemoptysis, numbness, tingling, headache or stiff neck. Patient denies any allergies. Patient stated allergies to carbamzepine and phenobarbital. - Home Meds and Allergies Home Medications: Home Medications Medication Instructions Recorded Confirmed Last Taken Hydralazine HCl 25 mg PO BID 07/18/17 07/18/17 1 Day Ago ~07/17/17 Previous Rx's Medication Instructions Recorded Last Taken Type Hydralazine HCl [Apresoline TAB] 50 mg PO Q8HR #90 tab 01/25/16 02/10/16 Rx Labetalol HCl 200 mg PO BID #60 tablet 01/25/16 1 Day Ago Rx ~07/17/17 HYDROcodone/APAP 5-325 [[place] 1 each PO Q6HR PRN #14 tablet 02/11/16 Unknown Rx 5/325] Amoxicillin [Trimox CAP] 500 mg PO Q8H #30 capsule 03/28/16 Unknown Rx HYDROcodone/APAP 5-325 [[place] 1 - 2 each PO Q6HR PRN #14 tablet 07/18/16 Unknown Rx 5/325] Promethazine [Phenergan TAB] 25 mg PO Q6HR PRN #20 tab 07/18/16 Unknown Rx Promethazine [Phenergan] 25 mg SC Q6HR PRN #5 supp.rect 07/18/16 Unknown Rx Sulfamethoxazole/Trimethoprim 1 each PO BID #20 tablet 07/18/16 Unknown Rx [Bactrim DS TAB] Levocetirizine Dihydrochloride 5 mg PO QDAY #30 tablet 11/15/16 Unknown Rx [Xyzal] Triamcinolone Acetonide [Nasacort 2 sprays NS QDAY #1 bottle 11/15/16 Unknown Rx SPRAY] Famotidine [Pepcid] 20 mg PO BID #20 tablet 12/04/16 Unknown Rx Ondansetron [Zofran Odt] 4 mg PO Q8HR PRN #20 tab.rapdis 12/04/16 Unknown Rx Acetaminophen [Acetaminophen ER 650 mg PO Q8HR PRN #30 tablet.er 01/09/17 Unknown Rx TAB] Vit Calc,Iron,Folic 1 each PO DAILY #30 tablet 01/09/17 1 Day Ago Rx [ Vitamins] ~07/17/17 Cetirizine HCl [ZyrTEC 10mg cap] 10 mg PO DAILY #30 capsule 01/31/17 Unknown Rx Pseudoephedrine HCl [Nasal & Sinus 30 mg PO TID #30 tablet 01/31/17 Unknown Rx Decongestant] Ferrous Sulfate [Feosol 325 MG tab] 325 mg PO BID #120 tablet 07/20/17 Unknown Rx Ibuprofen [Motrin 800 MG tab] 800 mg PO Q8HR PRN #30 tablet 07/20/17 Unknown Rx labetaloL [Labetalol 200mg TAB] 200 mg PO BID #60 tablet 07/20/17 Unknown Rx Ibuprofen [Motrin] 800 mg PO Q8HR PRN #15 tablet 12/11/17 Unknown Rx traMADoL [Ultram 50 MG tab] 50 mg PO Q6HR PRN #15 tablet 12/11/17 Unknown Rx Acetaminophen [Acetaminophen 8 650 mg PO TID #30 tablet.er 05/06/18 Unknown Rx Hour] Nitrofurantoin Monohyd/M-Cryst 100 mg PO Q12H #20 capsule 05/06/18 Unknown Rx [Macrobid 100 mg Capsule] Terbinafine HCl [Terbinafine] 1 applic TP DAILY 30 Days #30 06/10/18 Unknown Rx cream..g. hydrALAZINE [Apresoline TAB] 2 day PO BID #120 tab 06/10/18 Unknown Rx labetaloL [Labetalol 200mg TAB] 200 mg PO BID 30 Days #60 tablet 06/10/18 Unknown Rx Naproxen [Naprosyn] 500 mg PO TID PRN #12 tablet 07/05/18 Unknown Rx Benzonatate [Tessalon Perles] 100 mg PO Q8HR PRN #20 capsule 07/11/19 Unknown Rx Ibuprofen [Motrin] 600 mg PO Q8H PRN #20 tablet 07/11/19 Unknown Rx Allergies/Adverse Reactions: Allergies Allergy/AdvReac Type Severity Reaction Status Date / Time carbamazepine [From Tegretol] Allergy Unknown Swelling Verified 06/10/18 12:26 phenobarbital Allergy Unknown Swelling Verified 06/10/18 12:26 ED Review of Systems ROS: Stated complaint: CHEST PAIN/MIGRANE/KRISHAN/COUGH Other details as noted in HPI Constitutional: denies: chills, fever Eyes: denies: eye pain, eye discharge, vision change ENT: congestion. denies: ear pain, throat pain Respiratory: cough, wheezing. denies: shortness of breath Cardiovascular: denies: chest pain, palpitations Endocrine: no symptoms reported Gastrointestinal: denies: abdominal pain, nausea, diarrhea Genitourinary: denies: urgency, dysuria, discharge Musculoskeletal: denies: back pain, joint swelling, arthralgia Skin: denies: rash, lesions Neurological: denies: headache, weakness, paresthesias Psychiatric: denies: anxiety, depression Hematological/Lymphatic: denies: easy bleeding, easy bruising ED Past Medical Hx - Past Medical History Previous Medical History?: Yes Hx Hypertension: Yes (04/2013) Hx Congestive Heart Failure: No Hx Diabetes: No Hx Sickle Cell Disease: No Hx Seizures: Yes Hx Asthma: No Hx COPD: No Hx HIV: No - Surgical History Past Surgical History?: Yes Additional Surgical History: both ankle surgery - Social History Smoking Status: Current Every Day Smoker Substance Use Type: None - Medications Home Medications: Home Medications Medication Instructions Recorded Confirmed Last Taken Type Hydralazine HCl [Apresoline TAB] 50 mg PO Q8HR #90 tab 01/25/16 07/18/17 02/10/16 Rx Labetalol HCl 200 mg PO BID #60 tablet 01/25/16 07/18/17 1 Day Ago Rx ~07/17/17 HYDROcodone/APAP 5-325 [[place] 1 each PO Q6HR PRN #14 tablet 02/11/16 07/18/17 Unknown Rx 5/325] Amoxicillin [Trimox CAP] 500 mg PO Q8H #30 capsule 03/28/16 07/18/17 Unknown Rx HYDROcodone/APAP 5-325 [[place] 1 - 2 each PO Q6HR PRN #14 tablet 07/18/16 07/18/17 Unknown Rx 5/325] Promethazine [Phenergan TAB] 25 mg PO Q6HR PRN #20 tab 07/18/16 07/18/17 Unknown Rx Promethazine [Phenergan] 25 mg SC Q6HR PRN #5 supp.rect 07/18/16 07/18/17 Unknown Rx Sulfamethoxazole/Trimethoprim 1 each PO BID #20 tablet 07/18/16 07/18/17 Unknown Rx [Bactrim DS TAB] Levocetirizine Dihydrochloride 5 mg PO QDAY #30 tablet 11/15/16 07/18/17 Unknown Rx [Xyzal] Triamcinolone Acetonide [Nasacort 2 sprays NS QDAY #1 bottle 11/15/16 07/18/17 Unknown Rx SPRAY] Famotidine [Pepcid] 20 mg PO BID #20 tablet 12/04/16 07/18/17 Unknown Rx Ondansetron [Zofran Odt] 4 mg PO Q8HR PRN #20 tab.rapdis 12/04/16 07/18/17 Unknown Rx Acetaminophen [Acetaminophen ER 650 mg PO Q8HR PRN #30 tablet.er 01/09/17 07/18/17 Unknown Rx TAB] Vit Calc,Iron,Folic 1 each PO DAILY #30 tablet 01/09/17 07/18/17 1 Day Ago Rx [ Vitamins] ~07/17/17 Cetirizine HCl [ZyrTEC 10mg cap] 10 mg PO DAILY #30 capsule 01/31/17 07/18/17 Unknown Rx Pseudoephedrine HCl [Nasal & Sinus 30 mg PO TID #30 tablet 01/31/17 07/18/17 Unknown Rx Decongestant] Hydralazine HCl 25 mg PO BID 07/18/17 07/18/17 1 Day Ago History ~07/17/17 Ferrous Sulfate [Feosol 325 MG tab] 325 mg PO BID #120 tablet 07/20/17 Unknown Rx Ibuprofen [Motrin 800 MG tab] 800 mg PO Q8HR PRN #30 tablet 07/20/17 Unknown Rx labetaloL [Labetalol 200mg TAB] 200 mg PO BID #60 tablet 07/20/17 Unknown Rx Ibuprofen [Motrin] 800 mg PO Q8HR PRN #15 tablet 12/11/17 Unknown Rx traMADoL [Ultram 50 MG tab] 50 mg PO Q6HR PRN #15 tablet 12/11/17 Unknown Rx Acetaminophen [Acetaminophen 8 650 mg PO TID #30 tablet.er 05/06/18 Unknown Rx Hour] Nitrofurantoin Monohyd/M-Cryst 100 mg PO Q12H #20 capsule 05/06/18 Unknown Rx [Macrobid 100 mg Capsule] Terbinafine HCl [Terbinafine] 1 applic TP DAILY 30 Days #30 06/10/18 Unknown Rx cream..g. hydrALAZINE [Apresoline TAB] 2 day PO BID #120 tab 06/10/18 Unknown Rx labetaloL [Labetalol 200mg TAB] 200 mg PO BID 30 Days #60 tablet 06/10/18 Unknown Rx Naproxen [Naprosyn] 500 mg PO TID PRN #12 tablet 07/05/18 Unknown Rx Benzonatate [Tessalon Perles] 100 mg PO Q8HR PRN #20 capsule 07/11/19 Unknown Rx Ibuprofen [Motrin] 600 mg PO Q8H PRN #20 tablet 07/11/19 Unknown Rx ED Bronchiolitis Physical Exam - Exam General: Vital signs noted. No distress. Alert and acting appropriately. Neurologic: Alert and oriented, no deficits. Musculoskeletal: Unremarkable. ED Physical Exam - General Limitations: No Limitations General appearance: alert, in no apparent distress - Head Head exam: Present: atraumatic, normocephalic - Neck Neck exam: Present: normal inspection, full ROM. Absent: tenderness, meningismus, lymphadenopathy - Respiratory Respiratory exam: Present: wheezes (bilateral lobes). Absent: respiratory distress, rales, rhonchi, stridor, chest wall tenderness, accessory muscle use, decreased breath sounds, prolonged expiratory - Cardiovascular Cardiovascular Exam: Present: regular rate, normal rhythm, normal heart sounds. Absent: bradycardia, tachycardia, irregular rhythm, systolic murmur, diastolic murmur, rubs, gallop - Extremities Exam Extremities exam: Present: normal inspection, full ROM - Back Exam Back exam: Present: normal inspection, full ROM. Absent: tenderness, CVA tenderness (R), CVA tenderness (L), muscle spasm, paraspinal tenderness, vertebral tenderness, rash noted - Neurological Exam Neurological exam: Present: alert, oriented X3, normal gait - Psychiatric Psychiatric exam: Present: normal affect, normal mood - Skin Skin exam: Present: warm, dry, intact, normal color. Absent: rash ED Course Vital Signs 07/11/19 08:35 Temperature 98 F Pulse Rate 80 Respiratory 16 Rate Blood Pressure 155/121 [Left] O2 Sat by Pulse 100 Oximetry - Reevaluation(s) Reevaluation #1: 07/11/19 11:22 Patient is speaking in full sentences with no signs of distress noted. ED Medical Decision Making - Medical Decision Making This is a 34-year-old female that presents with influenza. Patient is stable and was examined by me. Chest x-ray has been obtained and dictated by radiologist with normal exam. Patient is notified of x-ray results with no questions noted. Patient is over the 24-48 hours of Tamiflu. Patient was instructed to increase hydration, rest and take Motrin for fever episodes. Patient received breathing treatment, steroids, motrin and tesslone perrls in the ED. Patient stated SOB and wheezing subsided after medical treatment. Vitals stable. Patient is nonfebrile and normal heart rate. Patient was instructed Follow-up with a primary care doctor in 3-5 days or if symptoms worsen and continue return to emergency room as soon as possible. At time time of discharge, the patient does not seem toxic or ill in appearance. No acute signs of distress noted. Patient agrees to discharge treatment plan of care. No further questions noted by the patient. Critical care attestation.: If time is entered above; I have spent that time in minutes in the direct care of this critically ill patient, excluding procedure time. ED Disposition Clinical Impression: Influenza Disposition: DC-01 TO HOME OR SELFCARE Is pt being admited?: No Does the pt Need Aspirin: No Condition: Stable Instructions: Fever in Adults (ED), Influenza (ED) Additional Instructions: Follow-up with a primary care doctor in 3-5 days or if symptoms worsen and continue return to emergency room as soon as possible. Increased rest, hydration, and take Motrin/Tylenol as prescribed for fever episode. Prescriptions: Ibuprofen [Motrin] 600 mg PO Q8H PRN #20 tablet PRN Reason: Pain Benzonatate [Tessalon Perles] 100 mg PO Q8HR PRN #20 capsule PRN Reason: Cough Referrals: PRIMARY CAREMD [Primary Care Provider] - 3-5 Days SHIVANI LEON MD [Staff Physician] - 3-5 Days [facility] [Outside] - 3-5 Days Forms: Work/School Release Form(ED)
--- NOTE | 2019-07-11 12:53 | XRay Report ---
CHEST 2 VIEWS INDICATION / CLINICAL INFORMATION: cough. COMPARISON: 12/11/2017 FINDINGS: SUPPORT DEVICES: None. HEART / MEDIASTINUM: No significant abnormality. LUNGS / PLEURA: No significant pulmonary or pleural abnormality. No pneumothorax. No evidence of pneu monia. ADDITIONAL FINDINGS: No significant additional findings. IMPRESSION: 1. No significant abnormality. No interval change. Signer Name: Amber Estes MD Signed: 07/11/2019 12:48 PM Workstation Name: [id number]
== END 2019-07-11 13:52 | disposition home or self-care (01) ==
LOC: ED 08:29
DX: J11.1 Influenza due to unidentified influenza virus with other respiratory manifestations (principal); I10 Essential (primary) hypertension; F17.200 Nicotine dependence, unspecified, uncomplicated; Z79.899 Other long term (current) drug therapy; Z88.1 Allergy status to other antibiotic agents; Z88.8 Allergy status to other drugs, medicaments and biological substances
CPT/HCPCS: 71046; 96372; 99283; J1100; 94640

== ENCOUNTER 2019-12-19 19:35 | Emergency (ER) | payer SELFPAY ==
--- NOTE | 2019-12-19 20:12 | Event Note ---
ED Screening Note ED Screening Note: states she has had ear pain since june has been using peroxide to clean it she states that her hearing is sometimes muffled states she took medication did not follow up PMHx HTN, anemia, seizures allergy: phenobarbital, tegretol LNMP: 12/13/2019 her bilateral TMs and canals are normal there are no signs of infection there is no signs of mastoiditis i advised pt that her exam is normal discussed with pt that there is no infection discussed with pt will refer to ENT doctor now pt is stating she is "having suicidal thoughts" she states she wants to run in front of a car she states she is hearing and seeing things no HI +cocaine use This initial assessment/diagnostic orders/clinical plan/treatment(s) is/are subject to change based on patients health status, clinical progression and re- assessment by fellow clinical providers in the ED. Further treatment and workup at subsequent clinical providers discretion. Patient/guardian urged not to elope from the ED as their condition may be serious if not clinically assessed and managed. Initial orders include: medical clearance psych mental health consult MAIN ED for psych hold
--- NOTE | 2019-12-19 20:45 | Emergency Department Report ---
<MAGUI GARCIAA - Last Filed: 12/21/19 13:27> ED General Adult HPI - General Chief complaint: Earache Stated complaint: EARACHE BOTH EARS Time Seen by Provider: 12/19/19 20:06 - Related Data Previous Rx's Medication Instructions Recorded Last Taken Type labetaloL [Labetalol 200mg TAB] 200 mg PO BID #60 tablet 07/20/17 Unknown Rx Ferrous Gluconate [Fergon 325 MG 325 mg PO TID #30 tablet 12/22/19 Unknown Rx tab] Allergies Allergy/AdvReac Type Severity Reaction Status Date / Time carbamazepine [From Tegretol] Allergy Unknown Swelling Verified 06/10/18 12:26 phenobarbital Allergy Unknown Swelling Verified 06/10/18 12:26 ED Past Medical Hx - Medications Home Medications: Home Medications Medication Instructions Recorded Confirmed Last Taken Type labetaloL [Labetalol 200mg TAB] 200 mg PO BID #60 tablet 07/20/17 12/22/19 Unknown Rx Ferrous Gluconate [Fergon 325 MG 325 mg PO TID #30 tablet 12/22/19 Unknown Rx tab] ED Course - Reevaluation(s) Reevaluation #2: 12/21/19 13:28 1013 order involuntary protocol instituted. Patient has suicidal ideation with plans to run into the street and get hit by car. Suicide precautions ordered. ED Medical Decision Making - Lab Data Result diagrams: 12/20/19 14:19 12/19/19 21:00 ED Disposition Clinical Impression: Chronic anemia, Depression, Medical clearance for psychiatric admission Disposition: DC/TX-65 PSY HOSP/PSY UNIT Condition: Good Prescriptions: Ferrous Gluconate [Fergon 325 MG tab] 325 mg PO TID #30 tablet Referrals: PRIMARY CARE, [Primary Care Provider] - 3-5 Days <RADHA HOPE - Last Filed: 12/24/19 10:23> ED General Adult HPI - General PUI?: No Source: patient, RN notes reviewed, old records reviewed Mode of arrival: Ambulatory Limitations: No Limitations - History of Present Illness Initial comments: The patient is a 34-year-old female. She is not known to myself previously. She denies fever, cough, coronavirus risk factors, and symptomatology. She has a past medical history of depression, associated hypertension, and anemia. The patient was seen and evaluated at this hospital a few days ago for chronic otological discomfort. She had a complete and thorough/appropriate work-up, and was discharged with outpatient follow-up, as she did not have an emergency medical condition. The patient presents today with a complaint of suicidality and depression. Please note that for the entire history and physical examination, I was chaperoned and escorted by nurse Sonya Balderas The patient states that she is depressed, seeing shadows, and hearing the voice of her mother. She denies intention to overdose, but she states she might run into traffic. She states that she has been depressed for about 2 years, but things are getting worse. She denies physical pain at this time, with the exception of chronic right-sided otologic discomfort. To me, she denies hea dache, neck pain, loss of vision, makes no complaint regarding loss of hearing, denies chest pain, abdominal pain, shortness of breath, urinary symptoms, extremity weakness and or numbness. -: week(s) Consistency: constant Improves with: none Worsens with: none Associated Symptoms: denies other symptoms ED Review of Systems ROS: Stated complaint: EARACHE BOTH EARS Other details as noted in HPI Comment: All other systems reviewed and negative ENT: ear pain. denies: throat pain, dental pain, epistaxis, congestion Psychiatric: depression, auditory hallucinations, visual hallucinations, suicidal thoughts. denies: homicidal thoughts ED Past Medical Hx - Past Medical History Previous Medical History?: Yes Hx Hypertension: Yes (04/2013) Hx Congestive Heart Failure: No Hx Diabetes: No Hx Sickle Cell Disease: No Hx Headaches / Migraines: Yes Hx Seizures: Yes Hx Asthma: No Hx COPD: No Hx HIV: No Additional medical history: anemia - Surgical History Past Surgical History?: Yes Additional Surgical History: both ankle surgery - Social History Smoking Status: Current Every Day Smoker Substance Use Type: Alcohol, Cocaine, Marijuana ED Physical Exam - General Limitations: No Limitations General appearance: alert, in no apparent distress - Head Head exam: Present: atraumatic, normocephalic - Eye Eye exam: Present: normal appearance, PERRL, EOMI, other (Visual acuity intact to finger counting, color perception, reading at a close distance). Absent: nystagmus - ENT ENT exam: Present: normal exam, normal orophraynx, mucous membranes moist, TM's normal bilaterally, normal external ear exam, other (There is no nasal septal hematoma. There is no hemotympanum. There is no discharge from the external auditory canal. There is no mastoid tenderness.) - Neck Neck exam: Present: normal inspection, full ROM. Absent: tenderness, meningismus - Respiratory Respiratory exam: Present: normal lung sounds bilaterally. Absent: respiratory distress - Cardiovascular Cardiovascular Exam: Present: regular rate, normal rhythm, normal heart sounds. Absent: bradycardia, tachycardia, irregular rhythm, systolic murmur, diastolic murmur, rubs, gallop - GI/Abdominal GI/Abdominal exam: Present: soft. Absent: distended, tenderness, guarding, rebound, rigid, pulsatile mass - Extremities Exam Extremities exam: Present: normal inspection, full ROM, other (2+ pulses noted in the bilateral upper and lower extremities. There is no palpable cord. negative Homans sign. Muscular compartments are soft. The pelvis is stable.). Absent: pedal edema, calf tenderness - Back Exam Back exam: Present: normal inspection, full ROM. Absent: tenderness, CVA tenderness (R), CVA tenderness (L), paraspinal tenderness, vertebral tenderness - Neurological Exam Neurological exam: Present: alert, oriented X3, normal gait, other (No facial droop. Tongue midline. Extraocular movements intact bilaterally. Facial sensation intact to light touch in V1, V2, V3 distribution bilaterally. 5 and a 5 strength in 4 extremities. Sensation intact to light touch in 4 extremities.). Absent: motor sensory deficit - Psychiatric Psychiatric exam: Present: agitated, suicidal ideation. Absent: homicidal ideation - Skin Skin exam: Present: warm, dry, intact, normal color. Absent: rash ED Course Vital Signs 12/19/19 12/19/19 12/19/19 19:59 20:06 22:00 Temperature 98.7 F 98.7 F 98.6 F Pulse Rate 80 80 77 Respiratory 18 18 20 Rate Blood Pressure 140/88 140/88 Blood Pressure 139/78 [Right] O2 Sat by Pulse 100 100 100 Oximetry 12/19/19 12/20/19 12/20/19 22:52 03:00 07:59 Temperature 97.8 F 98.5 F Pulse Rate 70 66 Respiratory 20 20 18 Rate Blood Pressure Blood Pressure 129/68 193/93 [Right] O2 Sat by Pulse 100 99 100 Oximetry 12/20/19 12/20/19 12/20/19 11:49 19:58 21:10 Temperature 97.9 F Pulse Rate 62 Respiratory 18 18 18 Rate Blood Pressure Blood Pressure 119/74 [Right] O2 Sat by Pulse 100 100 Oximetry 12/21/19 12/21/19 12/21/19 02:30 11:05 20:11 Temperature 97.8 F 98.2 F 98.8 F Pulse Rate 65 62 64 Respiratory 20 18 16 Rate Blood Pressure Blood Pressure 152/90 168/97 183/107 [Right] O2 Sat by Pulse 99 99 100 Oximetry 12/21/19 12/22/19 12/22/19 22:45 02:05 07:35 Temperature 98.2 F 98.7 F Pulse Rate 65 61 64 Respiratory 16 18 Rate Blood Pressure 173/93 Blood Pressure 133/80 127/72 [Right] O2 Sat by Pulse 98 100 Oximetry 12/22/19 10:03 Temperature Pulse Rate 64 Respiratory Rate Blood Pressure Blood Pressure [Right] O2 Sat by Pulse Oximetry - Reevaluation(s) Reevaluation #1: 12/19/19 21:08 Differential diagnosis, including but not limited to: Depression with psychotic features, dysthymia, medical clearance for psychiatric placement Assessment and plan: 34-year-old female, who is afebrile, with reassuring vital signs, with a primary complaint to myself of depression and suicidality. Her external physical examination is unremarkable, her head and neck examination are unremarkable, she has a GCS of 15, she is clinically sober, and she had a thorough emergency room work-up for her otologic complaints a few days ago. The patient does appear to be depressed, she is pleasant and cooperative. Discussed plan of care with patient. Appropriate screening laboratory studies will be obtained to exclude toxicologic ingestion. She recently had a CBC and a basic metabolic panel which were unremarkable with exception of chronic anemia. She also had a CT scan of her facial bones which was unremarkable. At this point in time, the patient does not appear to have an immediate medical contraindication to psychiatric admission, evaluation, consultation and placement. We will continue some of her outpatient medications. ED Medical Decision Making - Lab Data Result diagrams: 12/21/19 21:39 12/19/19 21:00 Vital Signs 12/19/19 12/19/19 19:59 20:06 Temperature 98.7 F 98.7 F Pulse Rate 80 80 Respiratory 18 18 Rate Blood Pressure 140/88 140/88 O2 Sat by Pulse 100 100 Oximetry Vital Signs 12/19/19 12/19/19 19:59 20:06 Temperature 98.7 F 98.7 F Pulse Rate 80 80 Respiratory 18 18 Rate Blood Pressure 140/88 140/88 O2 Sat by Pulse 100 100 Oximetry Lab Results 12/19/19 12/19/19 12/19/19 Range/Units 20:31 20:31 20:31 Hgb (10.1-14.3) gm/dl Hct (30.3-42.9) % Plt Count (140-440) K/mm3 Sodium (137-145) mmol/L Potassium (3.6-5.0) mmol/L Chloride (98-107) mmol/L Carbon Dioxide (22-30) mmol/L Anion Gap mmol/L BUN (7-17) mg/dL Creatinine (0.7-1.2) mg/dL Estimated GFR ml/min BUN/Creatinine Ratio % Glucose (65-100) mg/dL Calcium (8.4-10.2) mg/dL HCG, Qual (Negative) Salicylates < 0.3 L (2.8-20.0) mg/dL Acetaminophen < 5.0 L (10.0-30.0) ug/mL Plasma/Serum Alcohol < 0.01 (0-0.07) % 12/19/19 12/19/19 12/19/19 Range/Units 20:31 21:00 21:00 Hgb 8.3 L (10.1-14.3) gm/dl Hct 28.0 L (30.3-42.9) % Plt Count 219 (140-440) K/mm3 Sodium 142 (137-145) mmol/L Potassium 3.6 (3.6-5.0) mmol/L Chloride 100.1 (98-107) mmol/L Carbon Dioxide 25 (22-30) mmol/L Anion Gap 21 mmol/L BUN 13 (7-17) mg/dL Creatinine 0.9 (0.7-1.2) mg/dL Estimated GFR > 60 ml/min BUN/Creatinine Ratio 14 % Glucose 81 (65-100) mg/dL Calcium 10.2 (8.4-10.2) mg/dL HCG, Qual Negative (Negative) Salicylates (2.8-20.0) mg/dL Acetaminophen (10.0-30.0) ug/mL Plasma/Serum Alcohol (0-0.07) % - Radiology Data Radiology results: report reviewed, image reviewed Print Report Referring Physician: BRIANNE ROSAS Patient Name: JÚNIOR DUMONT Date of : 1985 Sex: Female Report Date: 2019-12-13 Report Status: Finalized Findings [facility] [address] [place] [address] Cat Scan Report Signed Patient: JÚNIOR DUMONT MR#: [id number] : 1985 Acct:[id number] Age/Sex: 34 / F ADM Date: 12/12/19 Loc: ED Attending Dr: Ordering Physician: BRIANNE ROSAS Date of Service: 12/13/19 Procedure(s): CT facial bones w con Accession Number(s): [id number] cc: BRIANNE ROSAS CT MAXILLOFACIAL WITH CONTRAST INDICATION / CLINICAL INFORMATION: MAIN: chronic tragal swelling, pus in canal, ear pain, 100CC [id number]. TECHNIQUE: All CT scans at this location are performed using CT dose reduction for ALARA by means of automated exposure control. COMPARISON: None available. FINDINGS: FACIAL BONES: No fracture or other significant abnormality. PARANASAL SINUSES: No significant abnormality. ORBITS: No significant abnormality. VISUALIZED INTRACRANIAL STRUCTURES: No significant abnormality. ADDITIONAL FINDINGS: No abnormal enhancement to suggest cellulitis or abscess IMPRESSION: 1. No significant abnormality. Signer Name: Fracisco Oneill MD Signed: 12/13/2019 4:45 AM Workstation Name: [id number] Transcribed By: TL Dictated By: Fracisco Oenill MD Electronically Authenticated By: Fracisco Oneill MD Signed Date/Time: 12/13/19444 DD/ 1 Critical care attestation.: If time is entered above; I have spent that time in minutes in the direct care of this critically ill patient, excluding procedure time. ED Disposition Is pt being admited?: No Does the pt Need Aspirin: No
[2019-12-19] MEDS ORDERED: ALPRAZolam 0.5 MG TAB PO PRN (20:57)
[2019-12-19] MEDS ORDERED: diphenhydrAMINE 25 MG CAP PO PRN (20:57)
[2019-12-19] MEDS ORDERED: LORazepam 2 MG/ML VIAL IM PRN (20:57)
[2019-12-19] MEDS ORDERED: HALOPERIDOL LACTATE 5 MG/1 ML INJ IM PRN (20:57)
[2019-12-19] MEDS ORDERED: BENZONATATE 100 MG CAP PO PRN (20:58)
[2019-12-19 21:22] LABS: Hemoglobin 8.3 gm/dl (10.1-14.3)
[2019-12-19 21:44] LABS: BUN/Creatinine Ratio 14; Blood Urea Nitrogen 13 mg/dL (7-17); Calcium 10.2 mg/dL (8.4-10.2); Hemolysis Index 48
[2019-12-19] MEDS: FAMOTIDINE 20 MG TAB PO SCH (23:33)
[2019-12-19] MEDS: FERROUS SULFATE 325 MG TAB PO SCH (23:34)
[2019-12-19 23:46] LABS: Bilirubin,Urine NEG (Negative); Blood,Urine MOD (Negative); Color,Urine Amber (Yellow); Hyaline Casts,Urine 2 /LPF; Mucus,Urine 3+ /HPF
[2019-12-19 23:55] LABS: Amphetamine Screen,Urine PRESUMPTIVE NEGATIVE; Benzodiazepines Screen,Urine PRESUMPTIVE NEGATIVE; Methadone Screen,Urine PRESUMPTIVE NEGATIVE; Opiate Screen,Urine PRESUMPTIVE NEGATIVE
[2019-12-20 00:13] LABS: Cannabinoid Screen,Urine PRESUMPTIVE POSITIVE; Cocaine Screen,Urine PRESUMPTIVE POSITIVE
[2019-12-20] MEDS: NITROFURANTOIN MONOHYD/M-CRYST 100 MG CAP PO SCH ×3 (03:02→22:36)
[2019-12-20] MEDS ORDERED: OFLOXACIN 0.3% AD SCH (10:00)
[2019-12-20] MEDS ORDERED: NON-FORMULARY EACH (Cetirizine Hcl [Zyrtec 10mg Cap] 10 MG) PO SCH (10:00)
[2019-12-20] MEDS: FAMOTIDINE 20 MG TAB PO SCH ×2 (10:30→22:37)
[2019-12-20] MEDS: CETIRIZINE 10 MG TAB PO SCH (10:30)
[2019-12-20] MEDS: FERROUS SULFATE 325 MG TAB PO SCH ×2 (10:30→22:36)
[2019-12-20 14:33] LABS: Hematocrit 24.6 % (30.3-42.9); Hemoglobin 7.6 gm/dl (10.1-14.3); Red Blood Count 4.32 M/mm3 (3.65-5.03)
[2019-12-20 14:34] LABS: Mean Corpuscular HGB Conc 31 % (30-34); Mean Corpuscular Volume 57 fl (79-97); Platelet Count 223 K/mm3 (140-440); Red Cell Distribution Width 21.9 % (13.2-15.2)
[2019-12-20 15:36] LABS: Total Cells Counted 100
[2019-12-20 15:37] LABS: Hypochromasia 2+; Macrocytosis Few; Schistocytes Rare
[2019-12-20 15:38] LABS: Ovalocytes Few; Tear Drop Cells Rare
[2019-12-20 15:39] LABS: Platelet Estimate Consistent w Auto
[2019-12-21] MEDS: NITROFURANTOIN MONOHYD/M-CRYST 100 MG CAP PO SCH ×2 (10:20→22:46)
[2019-12-21] MEDS: CETIRIZINE 10 MG TAB PO SCH (10:20)
[2019-12-21] MEDS: FERROUS SULFATE 325 MG TAB PO SCH ×2 (10:20→22:45)
[2019-12-21] MEDS: FAMOTIDINE 20 MG TAB PO SCH ×2 (10:20→22:47)
--- NOTE | 2019-12-21 11:25 | Consultation ---
History of Present Illness - Reason for Consult Consult date: 12/21/19 Reason for consult: SI, hallucinations - History of Present Psychiatric Illness Mayank Tinajero is a 34y/o female patient who presented to the ER with suicidal thoughts. During my interview with the patient this morning, she is lying in bed asleep. Easily arouses. She is a/o x 3. She verbalizes being "depressed." the patient verbalizes visual and auditory hallucinations. She says, "I hear my mom a lot." She says, "It's not clear what she says. They are whispers." The patient also says, "I see shadows." When asking the patient about suicidal thoughts, she says, "I just be wanting to shut my brain off." She says, "If I could stop breathing, I would shut my brain off." She says she does "crack sometimes and drinks 1 to 2 cans of bear daily." The patient denies any past SI/HI attempts, or any psych medications or history. PAST PSYCHIATRIC HISTORY Diagnoses: Denies Suicide attempts or Self-harm behavior: Denies Prior psychiatric hospitalizations: Denies Substance Abuse history: "crack and alcohol" Previous psychiatric medications tried: Denies Outpatient treatment: Denies PAST MEDICAL HISTORY: None reported Family Psychiatric History: Not reported SOCIAL HISTORY Marital Status: "Engaged" Living Arrangements: Homeless Employment Status: Unemployed Access to guns/weapons: Denies Education: 12th grade History of Abuse: Denies Legal History: Denies REVIEW OF SYSTEMS Constitutional: Negative for weight loss ENT: Negative for stridor Respiratory: Negative for cough or hemoptysis All other systems reviewed and are negative MENTAL STATUS EXAMINATION General Appearance: Dressed appropriately Behavior: calm and cooperative Mood: "Depressed" Affect and affective range: Congruent with stated mood Speech: Normal tone and pace Thought Process: Goal directed Thought Content: Suicidal Ideation: Passive Homicidal Ideation: Denies Hallucinations:A/V Delusions: None elicited Insight/Judgment: Limited Memory/Cognition: Limited Assessment and Plan Substance Induced Mood Disorder RECOMMENDATIONS Start Seroquel 25mg po BID Start Depakote DR 125mg po BID Start Trazodone 50mg po qhs Risks, benefits and alternatives of medications discussed with the patient, questions answered and consent obtained from patient. PSYCHOTHERAPY: Supportive psychotherapy provided MEDICAL: Per primary team DELIRIUM PRECAUTIONS: Please re-orient patient frequently, keep lights on during the day, and minimize benzodiazepines and opiates as these medications could worsen patient's confusion. 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 She may transfer to an acute psychiatric facility Will continue to follow until the patient is transferred or improves enough for discharge home. Thank you for the consult. Please contact with any questions and/or concerns. Medications and Allergies Allergies Allergy/AdvReac Type Severity Reaction Status Date / Time carbamazepine [From Tegretol] Allergy Unknown Swelling Verified 06/10/18 12:26 phenobarbital Allergy Unknown Swelling Verified 06/10/18 12:26 Home Medications Medication Instructions Recorded Confirmed Last Taken Type Hydralazine HCl [Apresoline TAB] 50 mg PO Q8HR #90 tab 01/25/16 07/18/17 02/10/16 Rx Labetalol HCl 200 mg PO BID #60 tablet 01/25/16 07/18/17 1 Day Ago Rx ~07/17/17 HYDROcodone/APAP 5-325 [Walton 1 each PO Q6HR PRN #14 tablet 02/11/16 07/18/17 Unknown Rx 5/325] Amoxicillin [Trimox CAP] 500 mg PO Q8H #30 capsule 03/28/16 07/18/17 Unknown Rx HYDROcodone/APAP 5-325 [Walton 1 - 2 each PO Q6HR PRN #14 tablet 07/18/16 07/18/17 Unknown Rx 5/325] Promethazine [Phenergan TAB] 25 mg PO Q6HR PRN #20 tab 07/18/16 07/18/17 Unknown Rx Promethazine [Phenergan] 25 mg AK Q6HR PRN #5 supp.rect 07/18/16 07/18/17 Unknown Rx Sulfamethoxazole/Trimethoprim 1 each PO BID #20 tablet 07/18/16 07/18/17 Unknown Rx [Bactrim DS TAB] Levocetirizine Dihydrochloride 5 mg PO QDAY #30 tablet 11/15/16 07/18/17 Unknown Rx [Xyzal] Triamcinolone Acetonide [Nasacort 2 sprays NS QDAY #1 bottle 11/15/16 07/18/17 Unknown Rx SPRAY] Famotidine [Pepcid] 20 mg PO BID #20 tablet 12/04/16 07/18/17 Unknown Rx Ondansetron [Zofran Odt] 4 mg PO Q8HR PRN #20 tab.rapdis 12/04/16 07/18/17 Unknown Rx Acetaminophen [Acetaminophen ER 650 mg PO Q8HR PRN #30 tablet.er 01/09/1707/18 Unknown Rx TAB] Vit Calc,Iron,Folic 1 each PO DAILY #30 tablet 01/09/17 07/18/17 1 Day Ago Rx [ Vitamins] ~07/17/17 Cetirizine HCl [ZyrTEC 10mg cap] 10 mg PO DAILY #30 capsule 01/31/17 07/18/17 Unknown Rx Pseudoephedrine HCl [Nasal & Sinus 30 mg PO TID #30 tablet 01/31/17 07/18/17 Unknown Rx Decongestant] Hydralazine HCl 25 mg PO BID 07/18/17 07/18/17 1 Day Ago History ~07/17/17 Ferrous Sulfate [Feosol 325 MG tab] 325 mg PO BID #120 tablet 07/20/17 Unknown Rx Ibuprofen [Motrin 800 MG tab] 800 mg PO Q8HR PRN #30 tablet 07/20/17 Unknown Rx labetaloL [Labetalol 200mg TAB] 200 mg PO BID #60 tablet 07/20/17 Unknown Rx Ibuprofen [Motrin] 800 mg PO Q8HR PRN #15 tablet 12/11/17 Unknown Rx traMADoL [Ultram 50 MG tab] 50 mg PO Q6HR PRN #15 tablet 12/11/17 Unknown Rx Acetaminophen [Acetaminophen 8 650 mg PO TID #30 tablet.er 05/06/18 Unknown Rx Hour] Nitrofurantoin Monohyd/M-Cryst 100 mg PO Q12H #20 capsule 05/06/18 Unknown Rx [Macrobid 100 mg Capsule] Terbinafine HCl [Terbinafine] 1 applic TP DAILY 30 Days #30 06/10/18 Unknown Rx cream..g. hydrALAZINE [Apresoline TAB] 2 day PO BID #120 tab 06/10/18 Unknown Rx labetaloL [Labetalol 200mg TAB] 200 mg PO BID 30 Days #60 tablet 06/10/18 Unknown Rx Naproxen [Naprosyn] 500 mg PO TID PRN #12 tablet 07/05/18 Unknown Rx Benzonatate [Tessalon Perles] 100 mg PO Q8HR PRN #20 capsule 07/11/19 Unknown Rx Ibuprofen [Motrin] 600 mg PO Q8H PRN #20 tablet 07/11/19 Unknown Rx Amoxicillin [Trimox CAP] 1,000 mg PO Q8H 10 Days #60 capsule 12/13/19 Unknown Rx Ofloxacin 0.3% [Floxin 0.3% Otic] 10 drops AD QDAY 7 Days #1 bottle 12/13/19 Unknown Rx Active Meds: Active Medications Alprazolam (Xanax) 0.5 mg PO Q6HR PRN PRN Reason: Anxiety Benzonatate (Tessalon Perles) 100 mg PO Q8HR PRN PRN Reason: Cough Cetirizine HCl (Cetirizine) 10 mg PO DAILY [facility] Last Admin: 12/21/19 10:20 Dose: 10 mg Documented by: Diphenhydramine HCl (Benadryl) 50 mg PO QHS PRN PRN Reason: Insomnia Famotidine (Pepcid) 20 mg PO BID [facility] Last Admin: 12/21/19 10:20 Dose: 20 mg Documented by: Ferrous Sulfate (Feosol) 325 mg PO BID [facility] Last Admin: 12/21/19 10:20 Dose: 325 mg Documented by: Haloperidol Lactate (Haldol) 5 mg IM Q6HR PRN PRN Reason: Agitation Lorazepam (Ativan) 2 mg IM Q4HR PRN PRN Reason: Agitation Nitrofurantoin Macrocrystals (Macrobid) 100 mg PO BID [facility] Stop: 12/26/19 10:01 Last Admin: 12/21/19 10:20 Dose: 100 mg Documented by: Mental Status Exam - Vital signs Last Vital Signs Temp 98.2 F 12/21/19 11:05 Pulse 62 12/21/19 11:05 Resp 18 12/21/19 11:05 BP 168/97 12/21/19 11:05 Pulse Ox 99 12/21/19 11:05 Results Result Diagrams: 12/20/19 14:19 12/19/19 21:00 Abnormal lab results 12/20/19 Range/Units 14:19 Hgb 7.6 L (10.1-14.3) gm/dl Hct 24.6 L (30.3-42.9) % MCV 57 L (79-97) fl MCH 18 L (28-32) pg RDW 21.9 H (13.2-15.2) % Lymphocytes % (Manual) 43.0 H (13.4-35.0) % Eosinophils % (Manual) 7.0 H (0.0-4.3) % All other labs normal.
[2019-12-21] MEDS: QUEtiapine 25 MG TAB PO SCH ×2 (13:36→22:45)
[2019-12-21] MEDS: DIVALPROEX DR 125 MG TAB PO SCH ×2 (13:36→23:14)
[2019-12-21 21:58] LABS: Hematocrit 26.8 % (30.3-42.9); Hemoglobin 8.2 gm/dl (10.1-14.3)
[2019-12-21] MEDS ORDERED: traZODone 50 MG TAB PO SCH (22:00)
[2019-12-21] MEDS: hydrALAZINE 25 MG TAB PO SCH (22:47)
[2019-12-22 07:41] VITALS: BP 127/72
[2019-12-22] MEDS: hydrALAZINE 25 MG TAB PO SCH (10:03)
[2019-12-22] MEDS: NITROFURANTOIN MONOHYD/M-CRYST 100 MG CAP PO SCH (10:04)
[2019-12-22] MEDS: QUEtiapine 25 MG TAB PO SCH (10:04)
[2019-12-22] MEDS: FAMOTIDINE 20 MG TAB PO SCH (10:04)
[2019-12-22] MEDS: DIVALPROEX DR 125 MG TAB PO SCH (10:09)
[2019-12-22] MEDS: CETIRIZINE 10 MG TAB PO SCH (10:13)
[2019-12-22] MEDS: FERROUS SULFATE 325 MG TAB PO SCH (10:51)
== END 2019-12-22 12:06 ==
LOC: EEVIPCON 19:35 → ED 19:35
DX: F32.89 Other specified depressive episodes (principal); D64.9 Anemia, unspecified; G89.29 Other chronic pain
CPT/HCPCS: 36415; 80048; 80307; 80320; 81001; 82550; 83735; 84703; 85007; 85014; 85018; 85025; 85049; G0480

== ENCOUNTER 2020-03-20 04:03 | Emergency (ER) | payer SELFPAY ==
--- NOTE | 2020-03-20 05:12 | XRay Report ---
CHEST 2 VIEWS INDICATION / CLINICAL INFORMATION: cough and congestion. COMPARISON: 07/11/2019 FINDINGS: SUPPORT DEVICES: None. HEART / MEDIASTINUM: No significant abnormality. LUNGS / PLEURA: No significant pulmonary or pleural abnormality. No pneumothorax. ADDITIONAL FINDINGS: No significant additional findings. IMPRESSION: 1. No acute findings. Signer Name: Fracisco Oneill MD Signed: 03/20/2020 5:07 AM Workstation Name: [id number]
[2020-03-20] MEDS ORDERED: HYDROcodone/ACETAMINOPHEN 5-325 MG TAB PO STA (06:25)
[2020-03-20] MEDS ORDERED: ALBUTEROL 2.5 MG/3 ML NEBU IH ONE (06:25)
--- NOTE | 2020-03-20 06:29 | Event Note ---
ED Screening Note ED Screening Note: 35-year-old F [place] female with past medical history of hypertension been out of her medication for some time presents reporting throbbing headache associated with blurred vision and dizziness and various episodes of presyncope also has been experiencing cough congestion and coryza with shortness of breath which appears to get worse with ambulation. This initial assessment/diagnostic orders/clinical plan/treatment(s) is/are subject to change based on patients health status, clinical progression and re- assessment by fellow clinical providers in the ED. Further treatment and workup at subsequent clinical providers discretion. Patient/guardian urged not to elope from the ED as their condition may be serious if not clinically assessed and managed. Initial orders include:
[2020-03-20 07:29] LABS: Basophils # (Auto) 0.1 K/mm3 (0.0-0.1); Basophils % (Auto) 1.3 % (0.0-1.8); Eosinophils # (Auto) 0.2 K/mm3 (0.0-0.4); Eosinophils % (Auto) 3.6 % (0.0-4.3); Hematocrit 30.8 % (30.3-42.9); Hemoglobin 9.6 gm/dl (10.1-14.3); Lymphocytes # (Auto) 1.9 K/mm3 (1.2-5.4); Mean Corpuscular HGB Conc 31 % (30-34); Monocytes # (Auto) 0.5 K/mm3 (0.0-0.8); Monocytes % (Auto) 8.9 % (0.0-7.3); Red Blood Count 4.96 M/mm3 (3.65-5.03)
[2020-03-20 07:50] LABS: Blood Urea Nitrogen 10 mg/dL (7-17); Calcium 9.8 mg/dL (8.4-10.2); Hemolysis Index 0
[2020-03-20 07:53] LABS: BUN/Creatinine Ratio 14
[2020-03-20 08:04] LABS: Mean Corpuscular Volume 62 fl (79-97); Red Cell Distribution Width 22.3 % (13.2-15.2)
[2020-03-20] MEDS ORDERED: POTASSIUM CHLORIDE ER 20 MEQ TAB PO ONE (08:10)
--- NOTE | 2020-03-20 08:21 | Cat Scan Report ---
CT HEAD WITHOUT CONTRAST INDICATION / CLINICAL INFORMATION: headache. TECHNIQUE: Axial imaging performed from the skull apex through the skull base without the use of cont rast. Sagittal and coronal reformatted images. All CT scans at this location are performed using CT dose reduction for ALARA by means of automated exposure control. COMPARISON: None available. FINDINGS: CEREBRAL PARENCHYMA: No significant abnormality. No acute territorial infarct. HEMORRHAGE: None. EXTRA-AXIAL SPACES: Normal in size and morphology for the patient's age. VENTRICULAR SYSTEM: Normal in size and morphology for the patient's age. MIDLINE SHIFT OR HERNIATION: None. CEREBELLUM / BRAINSTEM: No significant abnormality. CALVARIUM: No significant abnormality. ORBITS: Normal as visualized. PARANASAL SINUSES / MASTOID AIR CELLS: There is minimal fluid or mucosal thickening in the ethmoid ai r cells. The remaining sinuses and mastoids are clear. SOFT TISSUES of HEAD: No significant abnormality. ADDITIONAL FINDINGS: None. IMPRESSION: Unremarkable CT brain. Mild ethmoid sinus disease, likely chronic. Signer Name: Kevin Martin Jr, MD Signed: 03/20/2020 8:16 AM Workstation Name: [id number]
--- NOTE | 2020-03-20 08:28 | Emergency Department Report ---
ED General Adult HPI - General Chief complaint: Upper Respiratory Infection Stated complaint: COUGH, CONGESTION, DIZZINESS Time Seen by Provider: 03/20/20 07:34 Source: patient Mode of arrival: Ambulatory Limitations: No Limitations - History of Present Illness Initial comments: 35-year-old -[place] female patient with history of hypertension pr esents with complaints of intermittent dizziness, cough, congestion, and headache x3 days. She describes her dizziness as lightheadedness, but denies any loss of consciousness, room spinning dizziness, head trauma, numbness/tingling/weakness in her limbs, difficulty with speech/ambulation, confusion, memory loss, or history of CVA/WV/DVT/PE. She describes the presyncopal episode as feeling very lightheaded and having to sit down while at work 3 days ago , states symptoms improved after sitting. She does admit to being a smoker and states her cough is productive of yellow sputum. She denies any hemoptysis, recent long travel/surgeries, leg pain/swelling, or hormone use. Patient rates her current headache as a 4/10 in severity and describes it as a throbbing pain in her forehead and face. She states her vision is intermittently blurred, but denies any current blurred vision. She denies any fever/chills/sweats or known contact with COVID-19. -: Sudden Severity scale (0 -10): 10 - Related Data Previous Rx's Medication Instructions Recorded Last Taken Type Albuterol Mdi (or & Nicu Only) 2 puff IH Q4H PRN #8.5 gram 03/20/20 Unknown Rx [ProAir HFA Inhaler] Azithromycin [Zithromax Z-CECY] 0 mg PO DAILY #6 tab 03/20/20 Unknown Rx Ferrous Gluconate [Fergon 325 MG 325 mg PO TID #30 tablet 03/20/20 Unknown Rx tab] Potassium Chloride [K-Dur] 10 meq PO QDAY 5 Days #5 tablet 03/20/20 Unknown Rx Prednisone [predniSONE 10 mg 10 mg PO .TAPER #1 tab.ds.pk 03/20/20 Unknown Rx (6-Day Pack, 21 Tabs)] labetaloL [Labetalol 200mg TAB] 200 mg PO BID #60 tablet 03/20/20 Unknown Rx Allergies Allergy/AdvReac Type Severity Reaction Status Date / Time carbamazepine [From Tegretol] Allergy Unknown Swelling Verified 06/10/18 12:26 phenobarbital Allergy Unknown Swelling Verified 06/10/18 12:26 ED Review of Systems ROS: Stated complaint: COUGH, CONGESTION, DIZZINESS Other details as noted in HPI Constitutional: chills, malaise. denies: diaphoresis, fever, weakness ENT: denies: ear pain, throat pain, dental pain, hearing loss Respiratory: cough Cardiovascular: denies: chest pain, palpitations Endocrine: denies: excessive sweating Gastrointestinal: denies: abdominal pain, nausea, vomiting, diarrhea, constipation Genitourinary: denies: urgency, dysuria, frequency, hematuria Neurological: headache. denies: weakness, numbness, paresthesias, confusion, abnormal gait, vertigo Hematological/Lymphatic: denies: easy bruising, swollen glands ED Past Medical Hx - Past Medical History Previous Medical History?: Yes Hx Hypertension: Yes (04/2013) Hx Congestive Heart Failure: No Hx Diabetes: No Hx Sickle Cell Disease: No Hx Headaches / Migraines: Yes Hx Seizures: Yes Hx Asthma: No Hx COPD: No Hx HIV: No Additional medical history: anemia - Surgical History Past Surgical History?: Yes Additional Surgical History: both ankle surgery - Social History Smoking Status: Current Every Day Smoker Substance Use Type: None - Medications Home Medications: Home Medications Medication Instructions Recorded Confirmed Last Taken Type Albuterol Mdi (or & Nicu Only) 2 puff IH Q4H PRN #8.5 gram 03/20/20 Unknown Rx [ProAir HFA Inhaler] Azithromycin [Zithromax Z-CECY] 0 mg PO DAILY #6 tab 03/20/20 Unknown Rx Ferrous Gluconate [Fergon 325 MG 325 mg PO TID #30 tablet 03/20/20 Unknown Rx tab] Potassium Chloride [K-Dur] 10 meq PO QDAY 5 Days #5 tablet 03/20/20 Unknown Rx Prednisone [predniSONE 10 mg 10 mg PO .TAPER #1 tab.ds.pk 03/20/20 Unknown Rx (6-Day Pack, 21 Tabs)] labetaloL [Labetalol 200mg TAB] 200 mg PO BID #60 tablet 03/20/20 Unknown Rx ED Physical Exam - General Limitations: No Limitations General appearance: alert, in no apparent distress - Head Head exam: Present: atraumatic, normocephalic - Eye Eye exam: Present: normal appearance, PERRL, EOMI. Absent: scleral icterus, periorbital swelling Pupils: Present: other (Tenderness to palpation noted of the ethmoid and maxillary sinuses) - ENT ENT exam: Present: mucous membranes moist - Neck Neck exam: Present: normal inspection, full ROM - Respiratory Respiratory exam: Present: wheezes, rhonchi. Absent: respiratory distress, rales, stridor, chest wall tenderness - Cardiovascular Cardiovascular Exam: Present: regular rate, normal rhythm - GI/Abdominal GI/Abdominal exam: Present: soft. Absent: distended, tenderness, guarding, rebound, rigid - Extremities Exam Extremities exam: Present: normal inspection - Back Exam Back exam: Present: normal inspection - Neurological Exam Neurological exam: Present: alert, oriented X3, CN II-XII intact, normal gait. Absent: motor sensory deficit - Expanded Neurological Exam Expanded Cerebellar function: Finger to Nose: Normal, Heel to Wagner: Normal, Romberg: Normal Sensory exam: Upper Extremity Light Touch: Normal, Lower Extremity Light Touch: Normal Motor strength exam: RUE: 5, LUE: 5, RLE: 5, LLE: 5 - Psychiatric Psychiatric exam: Present: normal affect, normal mood - Skin Skin exam: Present: warm, dry, intact, normal color. Absent: rash, cyanosis, diaphoretic ED Course Vital Signs 03/20/20 03/20/20 03/20/20 04:08 04:10 06:22 Temperature 97.9 F 98.8 F Pulse Rate 82 77 Pulse Rate [ Bilateral Throughout] Pulse Rate [ Lying] Respiratory 18 18 Rate Respiratory Rate [Bilateral Throughout] Blood Pressure 219/140 Blood Pressure 190/98 186/103 [Left] Blood Pressure [Lying] O2 Sat by Pulse 100 97 Oximetry 03/20/20 03/20/20 03/20/20 06:43 07:38 07:49 Temperature 98.0 F Pulse Rate 68 Pulse Rate [ 78 Bilateral Throughout] Pulse Rate [ Lying] Respiratory 18 20 Rate Respiratory 20 Rate [Bilateral Throughout] Blood Pressure 182/102 Blood Pressure [Left] Blood Pressure [Lying] O2 Sat by Pulse 98 Oximetry 03/20/20 03/20/20 03/20/20 07:54 08:54 09:32 Temperature 98.2 F Pulse Rate 54 L 88 Pulse Rate [ Bilateral Throughout] Pulse Rate [ 69 Lying] Respiratory 20 Rate Respiratory Rate [Bilateral Throughout] Blood Pressure 186/102 145/86 Blood Pressure [Left] Blood Pressure 182/102 [Lying] O2 Sat by Pulse 98 Oximetry ED Medical Decision Making - Lab Data Result diagrams: 03/20/20 06:59 03/20/20 06:59 Lab Results 03/20/20 03/20/20 03/20/20 Range/Units 06:59 06:59 07:16 WBC 5.7 (4.5-11.0) K/mm3 RBC 4.96 (3.65-5.03) M/mm3 Hgb 9.6 L (10.1-14.3) gm/dl Hct 30.8 (30.3-42.9) % MCV 62 L (79-97) fl MCH 19 L (28-32) pg MCHC 31 (30-34) % RDW 22.3 H (13.2-15.2) % Lymph % (Auto) 33.0 (13.4-35.0) % Estill % (Auto) 8.9 H (0.0-7.3) % Eos % (Auto) 3.6 (0.0-4.3) % Baso % (Auto) 1.3 (0.0-1.8) % Lymph # 1.9 (1.2-5.4) K/mm3 Estill # 0.5 (0.0-0.8) K/mm3 Eos # 0.2 (0.0-0.4) K/mm3 Baso # 0.1 (0.0-0.1) K/mm3 Seg Neutrophils % 53.2 (40.0-70.0) % Seg Neutrophils # 3.0 (1.8-7.7) K/mm3 D-Dimer (0-234) ng/mlDDU Sodium 141 (137-145) mmol/L Potassium 3.1 L (3.6-5.0) mmol/L Chloride 101.1 (98-107) mmol/L Carbon Dioxide 23 (22-30) mmol/L Anion Gap 20 mmol/L BUN 10 (7-17) mg/dL Creatinine 0.7 (0.6-1.2) mg/dL Estimated GFR > 60 ml/min BUN/Creatinine Ratio 14 % Glucose 94 (65-100) mg/dL Calcium 9.8 (8.4-10.2) mg/dL Total Bilirubin (0.1-1.2) mg/dL Direct Bilirubin (0-0.2) mg/dL Indirect Bilirubin mg/dL AST (5-40) units/L ALT (7-56) units/L Alkaline Phosphatase (35-129) units/L Total Protein (6.3-8.2) g/dL Albumin (3.9-5) g/dL Albumin/Globulin Ratio % HCG, Qual Negative (Negative) 03/20/20 03/20/20 Range/Units 07:50 07:50 WBC (4.5-11.0) K/mm3 RBC (3.65-5.03) M/mm3 Hgb (10.1-14.3) gm/dl Hct (30.3-42.9) % MCV (79-97) fl MCH (28-32) pg MCHC (30-34) % RDW (13.2-15.2) % Lymph % (Auto) (13.4-35.0) % [place] % (Auto) (0.0-7.3) % Eos % (Auto) (0.0-4.3) % Baso % (Auto) (0.0-1.8) % Lymph # (1.2-5.4) K/mm3 Estill # (0.0-0.8) K/mm3 Eos # (0.0-0.4) K/mm3 Baso # (0.0-0.1) K/mm3 Seg Neutrophils % (40.0-70.0) % Seg Neutrophils # (1.8-7.7) K/mm3 D-Dimer 179.48 (0-234) ng/mlDDU Sodium (137-145) mmol/L Potassium (3.6-5.0) mmol/L Chloride (98-107) mmol/L Carbon Dioxide (22-30) mmol/L Anion Gap mmol/L BUN (7-17) mg/dL Creatinine (0.6-1.2) mg/dL Estimated GFR ml/min BUN/Creatinine Ratio % Glucose (65-100) mg/dL Calcium (8.4-10.2) mg/dL Total Bilirubin 0.20 (0.1-1.2) mg/dL Direct Bilirubin < 0.2 (0-0.2) mg/dL Indirect Bilirubin 0.0 mg/dL AST 18 (5-40) units/L ALT 10 (7-56) units/L Alkaline Phosphatase 72 (35-129) units/L Total Protein 7.0 (6.3-8.2) g/dL Albumin 4.4 (3.9-5) g/dL Albumin/Globulin Ratio 1.7 % HCG, Qual (Negative) - EKG Data EKG shows normal: sinus rhythm Rate: bradycardia (54 bpm) - EKG Data Interpretation: normal EKG - Radiology Data Radiology results: report reviewed CHEST 2 VIEWS INDICATION / CLINICAL INFORMATION: cough and congestion. COMPARISON: 07/11/2019 FINDINGS: SUPPORT DEVICES: None. HEART / MEDIASTINUM: No significant abnormality. LUNGS / PLEURA: No significant pulmonary or pleural abnormality. No pneumothorax. ADDITIONAL FINDINGS: No significant additional findings. IMPRESSION: 1. No acute findings. CT HEAD WITHOUT CONTRAST INDICATION / CLINICAL INFORMATION: headache. TECHNIQUE: Axial imaging performed from the skull apex through the skull base without the use of contrast. Sagittal and coronal reformatted images. All CT scans at this location are performed using CT dose reduction for ALARA by means of automated exposure control. COMPARISON: None available. FINDINGS: CEREBRAL PARENCHYMA: No significant abnormality. No acute territorial infarct. HEMORRHAGE: None. EXTRA-AXIAL SPACES: Normal in size and morphology for the patient's age. VENTRICULAR SYSTEM: Normal in size and morphology for the patient's age. MIDLINE SHIFT OR HERNIATION: None. CEREBELLUM / BRAINSTEM: No significant abnormality. CALVARIUM: No significant abnormality. ORBITS: Normal as visualized. PARANASAL SINUSES / MASTOID AIR CELLS: There is minimal fluid or mucosal thickening in the ethmoid air cells. The remaining sinuses and mastoids are clear. SOFT TISSUES of HEAD: No significant abnormality. ADDITIONAL FINDINGS: None. IMPRESSION: Unremarkable CT brain. Mild ethmoid sinus disease, likely chronic. - Medical Decision Making 35-year-old -[place] female patient with history of hypertension presents with complaints of intermittent dizziness, cough, congestion, and heada rich x3 days. She describes her dizziness as lightheadedness, but denies any loss of consciousness, room spinning dizziness, head trauma, numbness/tingling/weakness in her limbs, difficulty with speech/ambulation, confusion, memory loss, or history of CVA/WV/DVT/PE. She does admit to being a smoker and states her cough is productive of yellow sputum. She denies any hemoptysis, recent long travel/surgeries, leg pain/swelling, or hormone use. Patient rates her current headache as a 4/10 in severity and describes it as a throbbing pain in her forehead and face. She states her vision is interm ittently blurred, but denies any current blurred vision. She denies any fever/chills/sweats or known contact with COVID-19. On exam, there is wheezing and rhonchi bilaterally lung dixon and tenderness to palpation of the ethmoid and maxillary sinuses. No orthostatic hypotension is noted. CT shows ethmoid sinusitis. Chest x-ray is normal white count is normal CBC. Hemoglobin noted to be 9.7, patient states chronic history of iron deficiency anemia. Potassium noted to be 3.1, patient given 40 mg of p.o. potassium. She denied any nausea/vomiting/diarrhea. Blood pressure elevated, patient states she has been out of her labetalol for 2 weeks. She denies any history of stroke. Neuro exam is normal. D-dimer is normal. Patient given neb treatment, Decadron, and hydralazine. BP now 145/86. Patient to discharge home with azithromycin, prednisone, and refill of labetalol. Patient states she does not have a PCP at this time. Follow-up with Dr. Orozco of recommended within 2 days. She is well-appearing and vitals are stable. She is stable for discharge home strict return precautions were discussed in detail with patient who verbalized understanding. Patient also informed to get COVID testing and provided with COVID testing facility list Critical care attestation.: If time is entered above; I have spent that time in minutes in the direct care of this critically ill patient, excluding procedure time. ED Disposition Clinical Impression: Acute bacterial bronchitis, Acute bacterial sinusitis, Hypokalemia, Uncontrolled hypertension Disposition: DC-01 TO HOME OR SELFCARE Is pt being admited?: No Condition: Stable Instructions: Acute Bronchitis (ED), Acute Bacterial Rhinosinusitis (ED), Hypertension (ED) Prescriptions: Ferrous Gluconate [Fergon 325 MG tab] 325 mg PO TID #30 tablet Potassium Chloride [K-Dur] 10 meq PO QDAY 5 Days #5 tablet labetaloL [Labetalol 200mg TAB] 200 mg PO BID #60 tablet Prednisone [predniSONE 10 mg (6-Day Pack, 21 Tabs)] 10 mg PO .TAPER #1 tab.ds.pk Albuterol Mdi (or & Nicu Only) [ProAir HFA Inhaler] 2 puff IH Q4H PRN #8.5 gram PRN Reason: Shortness Of Breath Azithromycin [Zithromax Z-CECY] 0 mg PO DAILY #6 tab Referrals: SHIVANI OROZCO MD [Staff Physician] - 03/22/20
[2020-03-20 08:36] LABS: Alanine Aminotransferase 10 units/L (7-56); Albumin 4.4 g/dL (3.9-5)
[2020-03-20 08:38] LABS: Bilirubin,Direct < 0.2 mg/dL (0-0.2)
[2020-03-20] MEDS ORDERED: dexAMETHasone 20 MG/5 ML VIAL IV ONE (08:42)
[2020-03-20] MEDS ORDERED: hydrALAZINE 25 MG TAB PO ONE (08:43)
[2020-03-20 08:49] LABS: Platelet Count 121 K/mm3 (140-440)
[2020-03-20 09:36] VITALS: BP 145/86
== END 2020-03-20 10:01 | disposition home or self-care (01) ==
LOC: ED 04:03
DX: I10 Essential (primary) hypertension (principal); J01.90 Acute sinusitis, unspecified; E87.6 Hypokalemia; J20.8 Acute bronchitis due to other specified organisms; B96.89 Other specified bacterial agents as the cause of diseases classified elsewhere; D64.9 Anemia, unspecified; F17.200 Nicotine dependence, unspecified, uncomplicated; G43.909 Migraine, unspecified, not intractable, without status migrainosus; Z79.899 Other long term (current) drug therapy; Z98.890 Other specified postprocedural states; Z86.69 Personal history of other diseases of the nervous system and sense organs; Z88.8 Allergy status to other drugs, medicaments and biological substances
CPT/HCPCS: 36415; 70450; 71046; 80048; 80076; 84703; 85025; 85379; 93005; 94640; 96374; 99285; J1100; 94644

== ENCOUNTER 2021-08-11 09:17 | Emergency (ER) | payer SELFPAY ==
--- NOTE | 2021-08-11 08:26 | Emergency Department Report ---
ED Lower Extremity HPI - General Stated Complaint: ANKLE PAIN Source: patient, EMS Mode of arrival: Wheelchair Limitations: No Limitations - History of Present Illness Initial Comments: Chief complaint: Ankle injury HPI: This 36-year-old female with history of hypertension and seizure disorder presents with right ankle injury. 2 days ago patient had blunt trauma to the right ankle. While cleaning her home, ankle struck hard piece of furniture. She is limping on the ankle. She has difficulty bearing weight. 7 out of 10 pain with swelling at the lateral portion of the ankle. No other injuries. She does not have health insurance. She has been unable to obtain antihypertensive medication. She has not taken blood pressure medication in over a year. She previously took labetalol and hydralazine. She suspects that she is . She denies abdominal pain. She denies vaginal bleeding. EMS reported systolic blood pressure 180 mm Hg MD Complaint: ankle injury -: Sudden, days(s) (2 days ago while cleaning) Injury: Ankle: Right Type of Injury: blunt Severity: moderate Severity scale (0 -10): 7 Worsens With: weight bearing, movement, palpation Context: direct blow Associated Symptoms: swelling Treatments Prior to Arrival: other (Tylenol) - Related Data Previous Rx's Medication Instructions Recorded Last Taken Type Albuterol Mdi (or & Nicu Only) 2 puff IH Q4H PRN #8.5 gram 03/20/20 Unknown Rx [ProAir HFA Inhaler] Azithromycin [Zithromax Z-CECY] 0 mg PO DAILY #6 tab 03/20/20 Unknown Rx Ferrous Gluconate [Fergon 325 MG 325 mg PO TID #30 tablet 03/20/20 Unknown Rx tab] Potassium Chloride [K-Dur] 10 meq PO QDAY 5 Days #5 tablet 03/20/20 Unknown Rx Prednisone [predniSONE 10 mg 10 mg PO .TAPER #1 tab.ds.pk 03/20/20 Unknown Rx (6-Day Pack, 21 Tabs)] labetaloL [Labetalol 200mg TAB] 200 mg PO BID #60 tablet 03/20/20 Unknown Rx Allergies Allergy/AdvReac Type Severity Reaction Status Date / Time carbamazepine [From Tegretol] Allergy Unknown Swelling Verified 06/10/18 12:26 phenobarbital Allergy Unknown Swelling Verified 06/10/18 12:26 ED Review of Systems ROS: Stated complaint: ANKLE PAIN Other details as noted in HPI Comment: All other systems reviewed and negative Constitutional: denies: chills, fever, malaise Respiratory: denies: cough, shortness of breath Cardiovascular: denies: chest pain Gastrointestinal: denies: abdominal pain, nausea, vomiting ED Past Medical Hx - Past Medical History Previous Medical History?: Yes Hx Hypertension: Yes (04/2013) Hx Congestive Heart Failure: No Hx Diabetes: No Hx Sickle Cell Disease: No Hx Headaches / Migraines: Yes Hx Seizures: Yes Hx Asthma: No Hx COPD: No Hx HIV: No Additional medical history: anemia - Surgical History Past Surgical History?: Yes Additional Surgical History: both ankle surgery - Social History Smoking Status: Current Every Day Smoker Substance Use Type: Alcohol, Cocaine, Marijuana - Medications Home Medications: Home Medications Medication Instructions Recorded Confirmed Last Taken Type Albuterol Mdi (or & Nicu Only) 2 puff IH Q4H PRN #8.5 gram 03/20/20 Unknown Rx [ProAir HFA Inhaler] Azithromycin [Zithromax Z-CECY] 0 mg PO DAILY #6 tab 03/20/20 Unknown Rx Ferrous Gluconate [Fergon 325 MG 325 mg PO TID #30 tablet 03/20/20 Unknown Rx tab] Potassium Chloride [K-Dur] 10 meq PO QDAY 5 Days #5 tablet 03/20/20 Unknown Rx Prednisone [predniSONE 10 mg 10 mg PO .TAPER #1 tab.ds.pk 03/20/20 Unknown Rx (6-Day Pack, 21 Tabs)] labetaloL [Labetalol 200mg TAB] 200 mg PO BID #60 tablet 03/20/20 Unknown Rx ED Physical Exam - General Limitations: No Limitations General appearance: alert, in no apparent distress - Head Head exam: Present: atraumatic, normocephalic - Eye Eye exam: Present: normal appearance - ENT ENT exam: Present: mucous membranes moist - Neck Neck exam: Present: normal inspection, full ROM - Respiratory Respiratory exam: Present: normal lung sounds bilaterally. Absent: respiratory distress, wheezes, rales, rhonchi - Cardiovascular Cardiovascular Exam: Present: regular rate, normal rhythm, normal heart sounds. Absent: systolic murmur, diastolic murmur, rubs, gallop - GI/Abdominal GI/Abdominal exam: Present: soft, normal bowel sounds. Absent: distended, tenderness, guarding, rebound - Expanded Lower Extremity Exam Right Knee exam: Present: normal inspection, full ROM. Absent: tenderness, swelling, abrasion, laceration Lower Leg exam: Present: normal inspection, full ROM Ankle exam: Present: full ROM, tenderness, swelling. Absent: abrasion, laceration, ecchymosis, deformity, crepidus, dislocation, erythema Foot/Toe exam: Present: normal inspection, full ROM. Absent: tenderness, swelling Neuro vascular tendon exam: Present: no vascular compromise - Back Exam Back exam: Present: normal inspection - Neurological Exam Neurological exam: Present: alert, oriented X3 - Psychiatric Psychiatric exam: Present: normal affect, normal mood - Skin Skin exam: Present: warm, dry, intact, normal color. Absent: rash ED Lower Extremity MDM - Medical Decision Making 1. Right ankle injury 2.: Possible : Staff member informed me that patient requested "blood test". I informed the patient that blood test is not justified considering she is asymptomatic. I have referred her to rental car porter on-call. Recommended home test. Patient eloped prior to obtaining ankle radiograph. Critical care attestation.: If time is entered above; I have spent that time in minutes in the direct care of this critically ill patient, excluding procedure time. ED Disposition Clinical Impression: Right ankle injury Disposition: 07 LEFT AWOL/ELOPED Is pt being admited?: No Does the pt Need Aspirin: No Condition: Stable
[~2021-08-11 09:17] MED LIST: ACETAMINOPHEN 500 MG TAB PO ONE; IBUPROFEN 800 MG TAB PO ONE
== END 2021-08-11 11:24 | disposition left against medical advice (07) ==
LOC: ED 09:17
DX: S99.911A Unspecified injury of right ankle, initial encounter (principal); G43.909 Migraine, unspecified, not intractable, without status migrainosus; F17.200 Nicotine dependence, unspecified, uncomplicated; F12.90 Cannabis use, unspecified, uncomplicated; F14.90 Cocaine use, unspecified, uncomplicated; Z88.8 Allergy status to other drugs, medicaments and biological substances; Z72.89 Other problems related to lifestyle; Z86.69 Personal history of other diseases of the nervous system and sense organs; Z79.899 Other long term (current) drug therapy; X58.XXXA Exposure to other specified factors, initial encounter; Y93.89 Activity, other specified; Y92.89 Other specified places as the place of occurrence of the external cause; Y99.8 Other external cause status
CPT/HCPCS: 99281; 99282